=== PATIENT | male | born 1935 | race Caucasian/White ===

== ENCOUNTER → 2016-05-13 | Day surgery (SDC) | payer OTHER, BC ==
[2016-04-27 10:37] VITALS: Ht 168.9 cm; Wt 69.1 kg
[~2016-05-13] VITALS: Ht 168.9 cm; Wt 69.1 kg
[~2016-05-13] MED LIST: 500ML BSS 0.3ML EPI 1:1000PF IRRIG ONE; ACETAMINOPHEN 325 MG TAB PO PRN; AGG PO; AMVISC PLUS 0.8ML SYRINGE INT OCU ONE; ASPI81TA28 PO; ATEN-174 PO; ATROPINE SULFATE 0.1 MG/ML 5ML SYR IV PRN; AcetaZOLAMIDE 250 MG TAB PO SCH; BETAXOLOL HCL 0.25% OP SUSP PER DROP CHARGE OPL SCH; BRIMONIDINE TART 0.2% OP SOLN PER DROP CHARGE ONE; BSS FLUSH ONE; EpHEDrine SULFATE INJ 50 MG/ML AMP IV PRN; EpINEphrine INJ 1MG/ML AMP 1 MG/ML AMP ONE; FIBE1CHW PO; LACTATED RINGER'S 1000ML 500 ML IV SCH; LIDOCAINE 4% OP SOLN DROP CHARGE ONE; LIDOCAINE 4% OP SOLN DROP CHARGE OPL SCH; LIDOCAINE HCL 1% MPF 2 ML VIAL ONE; LISI5TAB PO; MIDAZOLAM HCL 1 MG/ML 2ML VIAL ONE; MISC1CAP58 PO; MIX: 4ML BSS 1ML EPI 1:1000 PF INSTIL ONE; MOXIFLOXACIN OPH SOLN PER DROP CHARGE ONE; NTRGSL/4 UT; OCUCOAT 1 ML SOLN IO ONE; POVIDONE-IODINE OP SOLN 30 ML BTL ONE; PROPARACAINE 0.5% OP SOLN PER DROP CHARGE OPL SCH; PROPARACAINE HCL 0.5% OP SOLN 15 ML BTL OPL ONE; SIMV20TA2 PO; TOBRAMYCIN/DEXAMETHASONE OPH OINT PER APPLN CHARGE ONE; TRYPAN BLUE 0.06% FOR SURGI CENTER ONLY OP ONE
--- NOTE | 2016-05-13 08:12 | History & Physical Bridge - [place] ---
H&P Re-Evaluation Bridge Note: I have examined the patient, reviewed the History & Physical and in the interval since the performance of the History & Physical I have noted the following changes of clinical significance: planning femto second laser. No changes noted
[2016-05-13] MEDS: PHENYLEPHRINE HCL 2.5% OP SOLN PER DROP CHARGE OPL SCH ×2 (08:50→08:55)
[2016-05-13] MEDS: TROPICAMIDE 1% OP SOLN PER DROP CHARGE OPL SCH ×2 (08:51→08:56)
[2016-05-13] MEDS: CYCLOPENTOLATE HCL 1% OP SOLN PER DROP CHARGE OPL SCH ×2 (08:52→08:57)
[2016-05-13] MEDS: MOXIFLOXACIN OPH SOLN PER DROP CHARGE OPL SCH ×2 (08:53→09:03)
--- NOTE | 2016-05-13 09:48 | Discharge Instructions-SurgCtr ---
Discharge Instructions Date of Service May 13, 2016. Visit Reason for Visit: Cataract Left Eye Discharge Discharge Diagnosis / Problem: lens implant left eye Discharge Goals Goal(s): Improve function Activity Recommendations Activity Limitations: resume your previous activity Lifting Limitations: no more than 10 pounds Exercise/Sports Limitations: gradually increase as tolerated May Resume Sexual Activity: when tolerated Shower/Bathe: tomorrow Driving or Machine Use: resume 1 day after discharge Anesthesia . Post Anesthesia Instructions: If you have had General Anesthesia or IV Sedation: * Do not drive today. * Resume driving when surgeon permits. * Do not make important decisions or sign legal documents today. * Call surgeon for: 1. Temperature elevations greater than 101 degrees F. 2. Uncontrollable pain. 3. Excessive bleeding. 4. Persistent nausea and vomiting. 5. Medication intolerance (nausea, vomiting or rash). * For nausea and vomiting use only clear liquids such as: tea, soda, bouillon until nausea subsides, then gradually increase diet as tolerated. * If you have any concerns or questions, call your surgeon's office. If physician is unavailable and it is an emergency, call 911 or go to the nearest emergency room. . Instructions / Follow-Up Instructions / Follow-Up ACTIVITY RECOMMENDATIONS: * Light activities. * Mild irritation and blurred vision are common for the first few days. * You may walk outside, read, watch television. * Redness around the white part of the eye is common. MEDICATIONS: Resume previous medications unless instructed otherwise by your surgeon. * Take white Diamox (Acetazolamide) tablet at 1 pm today. Start all eye drops at 1 pm today: * Eye drops (today and tomorrow): Prednisone - one drop in operative eye every 3 hours while awake Ofloxacin - one drop in operative eye every 3 hours while awake SPECIAL CARE INSTRUCTIONS: * Tape plastic shield over eye to sleep at night. Call your doctor at with any concerns or problems. FOLLOW UP VISIT: Follow-up with Dr Villalpando at [place] office as scheduled. Diet Recommendations Home Diet: no limitations Procedures Procedures Performed: cataract extraction with lens implant Pending Studies Studies pending at discharge: no Medical Emergencies . Who to Call and When: Medical Emergencies: If at any time you feel your situation is an emergency, please call 911 immediately. . Non-Emergent Contact Non-Emergency issues call your: Security Police Officer Call Non-Emergent contact if: your pain is not controlled [phone] . . "Provider Documentation" section prepared by Craig Villalpando.
[2016-05-13 09:52] VITALS: TEMP 36.6
--- NOTE | 2016-05-13 09:52 | [facility] Operative Report ---
Operative Report Date of Service May 13, 2016. Operative Report 1. PREOPERATIVE DIAGNOSIS: Senile nuclear cataract, left eye. 2. POSTOPERATIVE DIAGNOSIS: Senile nuclear cataract, left eye. 3. PROCEDURE: Phacoemulsification of left cataract with posterior chamber lens implant, type [employer], model MX60, power +22.5 diopters. ANESTHESIA: Local standby. SURGEON: Dr. Villalpando. COMPLICATIONS: None. OPERATING TIME: 10 minutes. 4. OPERATION AND FINDINGS: DESCRIPTION OF PROCEDURE: The left pupil was dilated. The patient was transported to the Femto Laser room. The Femto Laser was used to make the primary incision and the astigmatic incision and the capsulorrhexis and to soften the lens nucleus. The patient was transported to the operating room. The anesthetic was administered using a topical technique. The left eye was prepped and draped. A speculum was placed. A clear corneal incision was formed. The chamber was filled with Amvisc Plus and Endocoat. Epinephrine solution was used. A paracentesis was placed. A capsulorrhexis was performed. The nucleus was hydrodissected. The lens was removed with phacoemulsification. Time was 4.32 seconds. The aspiration unit was used to remove the cortex. The capsule was filled with Amvisc Plus. The lens implant was folded and placed into the capsule. The incision was hydrated. The Amvisc was aspirated. The wound was secure. The chamber was deep. The pupil was round. Brimonidine, TobraDex ointment and Vigamox solution were placed. The speculum was removed. The patient was returned to the Recovery Room in stable condition. I attest to the content of the Intraoperative Record and any orders documented therein. Any exceptions are noted below. The scribe's documentation has been prepared in my presence, under my direction and personally reviewed by me in its entirety. I confirm that the note above accurately reflects all work, treatment, procedures, and medical decision making performed by me. I personally scribed for Craig Villalpando M.D. ([email or web address]) on 05/13/16 at 09:52. Electronically submitted by Valentine Wilde ([facility]).
--- NOTE | 2016-05-13 10:03 | Anesthesia Progress Nt - [facility] ---
Anesthesia Post Op Note Date & Time May 13, 2016 at 10:03 Vital Signs Pain Intensity: 0 Vital Signs Past 12 Hours Date Time Temp Pulse Resp B/P Pulse Ox O2 Delivery O2 Flow Rate FiO2 05/13/16 09:52 36.6 55 16 193/105 98 Room Air 05/13/16 09:30 56 180/88 98 05/13/16 09:25 58 190/84 98 05/13/16 09:20 56 176/84 100 05/13/16 08:39 36.7 57 20 179/84 100 Room Air Notes Mental Status: alert / awake / arousable, participated in evaluation Pt Amnestic to Procedure: Yes Nausea / Vomiting: adequately controlled Pain: adequately controlled Airway Patency, RR, SpO2: stable & adequate BP & HR: stable & adequate Hydration State: stable & adequate Anesthetic Complications: no major complications apparent
[2016-05-13 10:25] VITALS: BP 162/86; PULSE 55; O2SAT 99
== END | disposition home or self-care (01) ==
LOC: X.SURG 08:19
PROVIDERS: ATTEND Specialist
DX: H25.12 Age-related nuclear cataract, left eye (principal); Z79.899 Other long term (current) drug therapy

== ENCOUNTER 2021-06-01 21:57 | Inpatient (IN) ==
--- NOTE | 2021-06-01 22:27 | Emergency Department Note ---
History of Present Illness General Chief complaint: Fall Stated complaint: Fall, Weakness Time Seen by Provider: 06/01/21 22:12 Source: patient, family, RN notes reviewed and old records reviewed Mode of arrival: ambulatory Limitations: no limitations History of Present Illness This patient comes in after falling. He said he lost balance as he typically does denies any injuries. He was recently diagnosed with COVID after having a home positive test. Is been sick for about 4 days with a deep [place] cough. He had a fever range from 99-1 101. He does not feel short of breath however he was hypoxemic. He has abrasion of his head and says it is more of a chronic thing where he hit his head frequently when going up to the attic. He denies any significant acute injury. He is on a blood thinner. Home Medications Medication Instructions Recorded Confirmed Type aspirin 25 mg-dipyridamole 200 mg 1 cap PO BID 06/01/21 06/01/21 History capsule,ext.release 12 hr multiphase aspirin 81 mg tablet,delayed 81 mg PO DAILY 06/01/21 06/01/21 History release atenolol 50 mg tablet 50 mg PO DAILY 06/01/21 06/01/21 History cyanocobalamin (vitamin B-12) 1,000 mcg PO DAILY 06/01/21 06/01/21 History 1,000 mcg tablet (Vitamin B-12) lisinopril 40 mg tablet 40 mg PO HS 06/01/21 06/01/21 History lutein 20 mg tablet 0 mg PO DAILY 06/01/21 06/01/21 History nitroglycerin 0.4 mg sublingual 0.4 mg SUBLINGUAL DIRECTED PRN 06/01/21 06/01/21 History tablet (Nitrostat) simvastatin 20 mg tablet 20 mg PO HS 06/01/21 06/01/21 History Allergies Allergy/AdvReac Type Severity Reaction Status Date / Time No Known Allergies Allergy Unknown Verified 06/01/21 22:49 Past Med/Surg History Social History Smoking Status: Never smoker Preferred Language: Sinhala Feels Safe at Home: Yes Review of Systems A total of 10 systems reviewed and were otherwise negative Physical Exam Vital Signs Vital Signs - 24 hr 06/01/21 22:00 06/01/21 22:03 06/02/21 00:03 Temperature 37.1 C 37.1 C Temperature Source Oral Oral Pulse Rate 70 87 Pulse Rate [Apical] 96 H 79 Pulse Rhythm Regular Regular Pulse Rhythm [Apical] Regular Regular Pulse Strength Normal Pulse Strength [Apical] Normal Normal Respiratory Rate 18 22 18 Respiratory Effort / Characteristics Non-Labored Spontaneous Non-Labored Spontaneous Short of Breath SOB on Exertion Non-Labored Spontaneous Respiratory Depth Normal Normal Normal Respiratory Pattern Regular Tachypnea Regular Blood Pressure 159/83 H Blood Pressure [Right Arm] 159/83 H 159/83 H Blood Pressure Mean 108 Blood Pressure Mean [Right Arm] 108 108 Blood Pressure Position Lying Blood Pressure Position [Right Arm] Lying Lying Pulse Oximetry 96 93 98 Oxygen Delivery Method Nasal Cannula Non-rebreather Nasal Cannula Oxygen Flow Rate 6 15 6 Sepsis Recent Fever Within 48 Hours Yes Sepsis New/Unexplained Change in Mental Status No Sepsis Action Taken by Nursing No Action Required 06/02/21 02:00 Temperature Temperature Source Pulse Rate Pulse Rate [Apical] 79 Pulse Rhythm Pulse Rhythm [Apical] Regular Pulse Strength Pulse Strength [Apical] Normal Respiratory Rate 18 Respiratory Effort / Characteristics Non-Labored Spontaneous Respiratory Depth Normal Respiratory Pattern Regular Blood Pressure Blood Pressure [Right Arm] 159/83 H Blood Pressure Mean Blood Pressure Mean [Right Arm] 108 Blood Pressure Position Blood Pressure Position [Right Arm] Lying Pulse Oximetry 98 Oxygen Delivery Method Nasal Cannula Oxygen Flow Rate 6 Sepsis Recent Fever Within 48 Hours Sepsis New/Unexplained Change in Mental Status Sepsis Action Taken by Nursing General: Well developed well nourished male who is wearing facemask but in no acute distress, breathing comfortably on room air. Normal speech. He has a deep hacking cough. HEENT: Normal cephalic atraumatic exception of some abrasions to the head which she says are not new today pupils are equal round and reactive to light. Extraocular movements are intact. Oropharynx is pink with moist mucous membranes. No swelling of the mouth lips or tongue. Neck: Supple with a midline trachea. No meningeal signs or stiffness, no JVD or bruits. No Stridor. Chest: Clear to auscultation bilaterally. No wheezes or rhonchi. No increased work of breathing. No crepitus or subcutaneous air. Heart: Regular rate and rhythm without murmurs or gallops. Abdomen: Soft nontender, nondistended without rebound guarding or rigidity. Extremities: No cyanosis clubbing or edema. No calf tenderness or assymetry Spine/Back. Non tender to palpation. No CVA tenderness Skin: Good turgor without rashes. Neurologic exam: Cranial nerves two through 12 are intact. Motor and sensation are intact and symmetrical throughout. Course Administered Medications Discontinued Medications Albuterol (Albut/Ipratrop 3mg/0.5mg Neb 3 Ml Vial) 3 ml NEB NOW STA; Protocol Stop: 06/02/21 01:18 Last Admin: 06/02/21 02:10 Dose: 3 ml Documented by: [id number] Dexamethasone Sodium Phosphate (DexamethasonePf 10 Mg/Ml Vial) 6 mg IV NOW ONE Stop: 06/02/21 00:25 Last Admin: 06/02/21 00:38 Dose: 6 mg Documented by: [id number] Sodium Chloride (Nss 1000ml) 500 mls @ 999 mls/hr IV .Q31M ONE Stop: 06/02/21 00:54 Last Infusion: 06/02/21 01:14 Dose: 0 mls/hr Documented by: [id number] Admin: 06/02/21 00:40 Dose: 999 mls/hr Documented by: [id number] Ioversol (Optiray 320 125ml) 125 ml IV ONCE ONE Stop: 06/02/21 01:51 Last Admin: 06/02/21 01:50 Dose: 116 ml Documented by: [id number] Potassium Chloride (Potassium Chloride Crtab 20 Meq Tabcr) 20 meq PO NOW STA Stop: 06/02/21 01:18 Last Admin: 06/02/21 02:11 Dose: 20 meq Documented by: [id number] Medical Decision Making Differential Diagnosis COVID, pneumonia, sepsis, CHF, traumatic injuries, cardiac disease Medical Records Attestation: I reviewed the patient's medical records. Home Medications Current Medication List: was personally reviewed by me Laboratory Data Attestation: I reviewed the patient's lab results. Result diagrams: 06/01/21 22:50 06/01/21 22:50 Lab Results 06/01/21 06/01/21 06/01/21 Range/Units 22:50 22:50 22:50 WBC 7.35 (4.8-10.8) K/uL RBC 3.97 L (4.7-6.1) M/uL Hgb 13.7 L (14.0-18.0) g/dL Hct 39.2 L (42-52) % MCV 98.7 (80-100) fL MCH 34.5 H (25-34) pg MCHC 34.9 (32-36) g/dL RDW Std Deviation 48.1 H (36.4-46.3) fL RDW Coeff of James 13.3 (11.5-14.5) % Plt Count 138 (130-400) K/uL MPV 12.4 H (7.4-10.4) fL Immature Gran % (Auto) 0.1 % Neut % (Auto) 82.9 % Lymph % (Auto) 7.6 % [place] % (Auto) 9.3 % Eos % (Auto) 0.0 % Baso % (Auto) 0.1 % Neut # (Auto) 6.09 (1.4-6.5) K/uL Lymph # (Auto) 0.56 L (1.2-3.4) K/uL [place] # (Auto) 0.68 H (0.11-0.59) K/uL Eos # (Auto) 0.00 (0-0.5) K/uL Baso # (Auto) 0.01 (0-0.2) K/uL Immature Gran # (Auto) 0.01 (0.00-0.02) K/uL PT 10.6 (9.0-12.0) Seconds INR 1.0 (0.9-1.1) APTT 29.0 (21.0-31.0) Seconds PTT Ratio 1.1 D-Dimer 2780 H* (0-500) ug/L FEU ABG pH (7.35-7.45) ABG pCO2 (35-46) mmHg ABG pO2 (80-95) mmHg ABG HCO3 (19-24) mmol/L ABG O2 Saturation (90-95) % ABG Base Excess (-9-1.8) mEq/L Hollis Test (Pos) Barometric Pressure mm/Hg Oxygen Given Sodium (136-145) mmol/L Potassium (3.5-5.1) mmol/L Chloride (98-107) mmol/L Carbon Dioxide (21-32) mmol/L Anion Gap (3-11) BUN (6-23) mg/dl Creatinine (0.6-1.4) mg/dl Est Cr Clr Drug Dosing ml/min Est GFR ( Amer) ml/min Est GFR (Non-Af Amer) ml/min BUN/Creatinine Ratio (10-20) Glucose (70-99(Fasting)) mg/dl Lactate (0.4-2.0) mmol/L Calcium (8.5-10.1) mg/dl Magnesium (1.7-2.4) mg/dl Total Bilirubin (0.2-1.0) mg/dl AST (13-39) U/L ALT (7-52) U/L Alkaline Phosphatase (34-104) U/L Troponin I High Sens 67.1 H* (0-20) pg/ml Total Protein (6.0-8.3) gm/dl Albumin (3.4-5.0) gm/dl Globulin (2.5-4.0) gm/dl Albumin/Globulin Ratio (0.9-2) Procalcitonin (0-0.5) ng/ml SARS-CoV-2 (PCR) (Negative) Influenza Type A (PCR) (Neg) Influenza Type B (PCR) (Neg) RSV (RT-PCR) (Neg) 06/01/21 06/01/21 06/01/21 Range/Units 22:50 22:50 22:50 WBC (4.8-10.8) K/uL RBC (4.7-6.1) M/uL Hgb (14.0-18.0) g/dL Hct (42-52) % MCV (80-100) fL MCH (25-34) pg MCHC (32-36) g/dL RDW Std Deviation (36.4-46.3) fL RDW Coeff of James (11.5-14.5) % Plt Count (130-400) K/uL MPV (7.4-10.4) fL Immature Gran % (Auto) % Neut % (Auto) % Lymph % (Auto) % [place] % (Auto) % Eos % (Auto) % Baso % (Auto) % Neut # (Auto) (1.4-6.5) K/uL Lymph # (Auto) (1.2-3.4) K/uL [place] # (Auto) (0.11-0.59) K/uL Eos # (Auto) (0-0.5) K/uL Baso # (Auto) (0-0.2) K/uL Immature Gran # (Auto) (0.00-0.02) K/uL PT (9.0-12.0) Seconds INR (0.9-1.1) APTT (21.0-31.0) Seconds PTT Ratio D-Dimer (0-500) ug/L FEU ABG pH (7.35-7.45) ABG pCO2 (35-46) mmHg ABG pO2 (80-95) mmHg ABG HCO3 (19-24) mmol/L ABG O2 Saturation (90-95) % ABG Base Excess (-9-1.8) mEq/L Hollis Test (Pos) Barometric Pressure mm/Hg Oxygen Given Sodium 137 (136-145) mmol/L Potassium 3.4 L (3.5-5.1) mmol/L Chloride 104 (98-107) mmol/L Carbon Dioxide 25 (21-32) mmol/L Anion Gap 8 (3-11) BUN 21 (6-23) mg/dl Creatinine 0.84 (0.6-1.4) mg/dl Est Cr Clr Drug Dosing 59.0 ml/min Est GFR ( Amer) 91.9 ml/min Est GFR (Non-Af Amer) 79.3 ml/min BUN/Creatinine Ratio 25.0 H (10-20) Glucose 129 H (70-99(Fasting)) mg/dl Lactate 0.9 (0.4-2.0) mmol/L Calcium 9.1 (8.5-10.1) mg/dl Magnesium 2.1 (1.7-2.4) mg/dl Total Bilirubin 0.6 (0.2-1.0) mg/dl AST 72 H (13-39) U/L ALT 33 (7-52) U/L Alkaline Phosphatase 68 (34-104) U/L Troponin I High Sens (0-20) pg/ml Total Protein 6.6 (6.0-8.3) gm/dl Albumin 3.8 (3.4-5.0) gm/dl Globulin 2.8 (2.5-4.0) gm/dl Albumin/Globulin Ratio 1.4 (0.9-2) Procalcitonin 0.08 (0-0.5) ng/ml SARS-CoV-2 (PCR) (Negative) Influenza Type A (PCR) (Neg) Influenza Type B (PCR) (Neg) RSV (RT-PCR) (Neg) 06/01/21 06/02/21 06/02/21 Range/Units 22:50 00:58 01:48 WBC (4.8-10.8) K/uL RBC (4.7-6.1) M/uL Hgb (14.0-18.0) g/dL Hct (42-52) % MCV (80-100) fL MCH (25-34) pg MCHC (32-36) g/dL RDW Std Deviation (36.4-46.3) fL RDW Coeff of James (11.5-14.5) % Plt Count (130-400) K/uL MPV (7.4-10.4) fL Immature Gran % (Auto) % Neut % (Auto) % Lymph % (Auto) % [place] % (Auto) % Eos % (Auto) % Baso % (Auto) % Neut # (Auto) (1.4-6.5) K/uL Lymph # (Auto) (1.2-3.4) K/uL [place] # (Auto) (0.11-0.59) K/uL Eos # (Auto) (0-0.5) K/uL Baso # (Auto) (0-0.2) K/uL Immature Gran # (Auto) (0.00-0.02) K/uL PT (9.0-12.0) Seconds INR (0.9-1.1) APTT (21.0-31.0) Seconds PTT Ratio D-Dimer (0-500) ug/L FEU ABG pH 7.38 (7.35-7.45) ABG pCO2 34 L (35-46) mmHg ABG pO2 68 L (80-95) mmHg ABG HCO3 20 (19-24) mmol/L ABG O2 Saturation 94.0 (90-95) % ABG Base Excess -4.5 (-9-1.8) mEq/L Hollis Test Pos (Pos) Barometric Pressure 731.7 mm/Hg Oxygen Given ROOM AIR Sodium (136-145) mmol/L Potassium (3.5-5.1) mmol/L Chloride (98-107) mmol/L Carbon Dioxide (21-32) mmol/L Anion Gap (3-11) BUN (6-23) mg/dl Creatinine (0.6-1.4) mg/dl Est Cr Clr Drug Dosing ml/min Est GFR ( Amer) ml/min Est GFR (Non-Af Amer) ml/min BUN/Creatinine Ratio (10-20) Glucose (70-99(Fasting)) mg/dl Lactate (0.4-2.0) mmol/L Calcium (8.5-10.1) mg/dl Magnesium (1.7-2.4) mg/dl Total Bilirubin (0.2-1.0) mg/dl AST (13-39) U/L ALT (7-52) U/L Alkaline Phosphatase (34-104) U/L Troponin I High Sens 84.7 H* D (0-20) pg/ml Total Protein (6.0-8.3) gm/dl Albumin (3.4-5.0) gm/dl Globulin (2.5-4.0) gm/dl Albumin/Globulin Ratio (0.9-2) Procalcitonin (0-0.5) ng/ml SARS-CoV-2 (PCR) POSITIVE A* (Negative) Influenza Type A (PCR) Negative (Neg) Influenza Type B (PCR) Negative (Neg) RSV (RT-PCR) Negative (Neg) Imaging Data Attestation: I personally reviewed and interpreted this imaging study as follows: My Impression: Chest x-rayno acute infiltrate, failure, pneumothorax seen Radiologist's Impression: CT HEAD: Mild cerebral atrophy and patchy periventricular and deep white matter low densities throughout the cerebrum consistent with chronic small vessel disease and/or senescent changes. 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 No acute large vessel infarct or intracranial hemorrhage is seen. The paranasal sinuses and mastoid air cells are normal. No skull fracture or significant scalp is seen. CTA CHEST: The pulmonary arterial tree is well-opacified with contrast. No pulmonary emboli are identified. The thoracic aorta is mildly calcified but nondilated. There is no aneurysm or dissection. Borderline cardiomegaly with severe coronary calcification. No pericardial effusion is seen. Streaky densities in the lower lobes bilaterally and right middle lobe associated with bronchial wall thickening and mild bronchial plugging suggesting bronchopneumonia. No pneumothorax or pleural effusion is seen. Mild to moderate osteophytosis throughout the thoracic spine. No acute fracture or bone lesion is seen. Limited images of the abdomen showed partial visualization of a 6 mm layer of tiny calculi in the gallbladder. No obvious surrounding inflammation is seen. CT C SPINE: There is moderate narrowing and osteophytosis of the atlantodental joint. The odontoid process is intact. The prevertebral soft tissues are within normal limits. Mild to moderate multilevel degenerative disc space narrowing and osteophytosis throughout the cervical spine. There is also mild facet arthrosis. No acute fracture or subluxation is seen. Axial soft tissue images demonstrate no evidence of significant spinal stenosis. Mild calcification of the carotid bifurcations bilaterally. CT ABDOMEN & PELVIS Without Contrast: Mild scattered patchy infiltrates in both lung bases consistent with pneumonia. I will loops are nondilated. There are scattered gas fluid levels in nondilated distal small bowel and right colon suggesting mild ileus or gastroenteritis. No focal bowel wall inflammation, pneumoperitoneum, or free fluid is seen. The liver, gallbladder, pancreas, spleen, adrenal glands, and kidneys are within normal limits. The urinary bladder is partially distended and within normal limits. The prostate gland is enlarged measuring 7 cm. Mild to moderate degenerative changes are seen throughout the spine. No acute fracture or subluxation is seen. ECG Data Attestation: I personally reviewed and interpreted this ECG as follows: Indication: + weakness Rate (beats per minute): 77 Rhythm: + sinus with SA ECG Intervals/blocks: + Normal QRS, + Normal QT and + Normal DE ECG [place]: + Normal ECG ST segments: + Normal ST segments ECG Findings: no PACs or no PVCs Comparison ECG Date: from (02/04/06) Change: no significant change MDM Narrative This patient comes in as described above. He was placed in room A3, the nurse asked me to come see him as he was hypoxemic. He appears comfortable on the supplemental oxygen. He apparently had a positive home COVID test every swab him here I did a full sepsis type work-up chest x-ray was obtained he was reassessed frequently. He does apparently have some dementia but does seem to answer questions appropriately but I am not sure how accurately. I did a full sepsis type work-up on him. He does not actually appear to be any significant distress and we actually weaned his oxygen down from 15 L to 6. He does have abrasions of the head which he said was from bumping in the attic however his said he fell and hit his head today and he has been very weak lately. He did have a home positive COVID which was confirmed here and he is indeed positive for COVID is unclear how many days but it sounds like he has had symptoms for 2 or 3. I did give him Decadron 6 mg IV given his hypoxemia. His D-dimer did come back elevated. I did order a CTA of the chest as well as a CT of the head and neck and abdomen to evaluate him for PE and also trauma since he did fall. His troponin is mildly elevated as well as EKG shows no ischemic changes. While he was here he did fall while trying to get out of bed he denies any injury he may have hit his head this was prior to me scanning him. He has no other complaints. I went and evaluated him after this. CAT scan of his head was negative. CAT scan of the neck was also negative for acute findings. CAT scan of the chest and abdomen did not show any acute findings with exception of likely COVID findings. No PE. His troponin is trending upward which is a concern for cardiac event probably related to the COVID although his EKG does not show ischemic changes and he has no chest pain. Dr. Lozada was consulted and saw the patient in ER for further treatment and evaluation. Continuous cardiac monitoring: An order was placed in EMR for continuous cardiac monitoring. Upon my evaluation, the patient was found to be an normal sinus rhythm with a rate of 75 Impression & Plan COVID, Weakness, Fall, Head injury, Elevated troponin, Hypoxemia Discharge Plan Visit Data Chief Complaint: Fall Stated Complaint: Fall, Weakness ED Provider: Bernardo Aguilar Discharge Problem: COVID, Weakness, Fall, Head injury, Elevated troponin, Hypoxemia Forms Stand Alone Forms: My [facility] Prescriptions Prescriptions: No Action aspirin-dipyridamole 25-200 mg capsule, ER multiphase 12 hr 1 cap PO BID RF: 0 cyanocobalamin (vitamin B-12) [Vitamin B-12] 1,000 mcg Tablet 1,000 mcg PO DAILY RF: 0 aspirin 81 mg Tablet,Delayed Release (Dr/Ec) 81 mg PO DAILY RF: 0 simvastatin 20 mg tablet 20 mg PO HS RF: 0 nitroglycerin [Nitrostat] 0.4 mg Tablet, Sublingual 0.4 mg sublingual DIRECTED PRN (Reason: Chest Pain) RF: 0 lisinopril 40 mg tablet 40 mg PO HS RF: 0 atenolol 50 mg tablet 50 mg PO DAILY RF: 0 lutein 20 mg Tablet 0 mg PO DAILY RF: 0 Referrals Referrals: Roni Johnson MD [Primary Care Provider] -
[2021-06-01 23:31] LABS: Hematocrit (blood only) 39.2 % (42-52); Hemoglobin 13.7 g/dL (14.0-18.0); Mean Corpuscular Hemoglobin 34.5 pg (25-34); Mean Corpuscular Hgb Conc 34.9 g/dL (32-36); Mean Corpuscular Volume 98.7 fL (80-100); Mean Platelet Volume 12.4 fL (7.4-10.4); Platelet Count 138 K/uL (130-400); RDW Coefficient of Variation 13.3 % (11.5-14.5); RDW Standard Deviation 48.1 fL (36.4-46.3); Red Blood Count 3.97 M/uL (4.7-6.1); White Blood Count 7.35 K/uL (4.8-10.8)
[2021-06-01 23:53] LABS: Basophils # (auto) 0.01 K/uL (0-0.2); Basophils % (auto) 0.1 %; Immature Granulocytes # (auto) 0.01 K/uL (0.00-0.02); Immature Granulocytes % (auto) 0.1 %; Lymphocytes # (auto) 0.56 K/uL (1.2-3.4); Lymphocytes % (auto) 7.6 %; Monocytes # (auto) 0.68 K/uL (0.11-0.59); Monocytes % (auto) 9.3 %; Neutrophils # (auto) 6.09 K/uL (1.4-6.5); Neutrophils % (auto) 82.9 %
[2021-06-02 00:04] LABS: Partial Thromboplastin Ratio 1.1; Prothrombin Time 10.6 Seconds (9.0-12.0)
[2021-06-02 00:05] LABS: D Dimer 2780 ug/L FEU (0-500)
[2021-06-02 00:06] LABS: Influenza A virus by PCR Negative (Neg); Influenza B virus by PCR Negative (Neg); RSV by PCR Negative (Neg)
[2021-06-02 00:13] LABS: Albumin Globulin Ratio 1.4 (0.9-2); Albumin Level 3.8 gm/dl (3.4-5.0); Bilirubin,Total 0.6 mg/dl (0.2-1.0); Calcium 9.1 mg/dl (8.5-10.1); Est GFR (African American) 91.9 ml/min; Est GFR (Non-African American) 79.3 ml/min; Globulin 2.8 gm/dl (2.5-4.0); Magnesium 2.1 mg/dl (1.7-2.4); Potassium 3.4 mmol/L (3.5-5.1); Total Protein 6.6 gm/dl (6.0-8.3)
[2021-06-02 00:20] LABS: SARS CoV2 RNA(COVID-19) InHosp POSITIVE (Negative)
[2021-06-02] MEDS ORDERED: dexAMETHasone**PF** 10 MG/ML VIAL IV ONE (00:24)
[2021-06-02] MEDS ORDERED: SODIUM CHLORIDE 0.9% 1000ML 500 ML IV ONE (00:24)
[2021-06-02] MEDS ORDERED: POTASSIUM CHLORIDE CRTAB 20 MEQ TABCR PO STA ×2 (01:17→09:17)
[2021-06-02] MEDS ORDERED: ALBUT/IPRATROP 3MG/0.5MG NEB 3 ML VIAL NEB STA (01:17)
[2021-06-02] MEDS ORDERED: OPTIRAY 320 125ml IV ONE (01:50)
[2021-06-02 02:03] LABS: Base Excess ABG -4.5 mEq/L (-9-1.8); HCO3 ABG 20 mmol/L (19-24); PCO2 ABG 34 mmHg (35-46); PO2 ABG 68 mmHg (80-95); pH ABG 7.38 (7.35-7.45)
[2021-06-02 02:04] LABS: Allen Test Pos (Pos)
[2021-06-02] MEDS ORDERED: cefTRIAXone SODIUM 2,000 MG/70 ML BAG IV STA (02:54)
--- NOTE | 2021-06-02 02:54 | History & Physical Report ---
Date of Service June 02, 2021 Assessment & Plan (1) Acute hypoxemic respiratory failure: Plan: Secondary to severe COVID-19 pneumonia With superimposed bacterial infection No overt sepsis for now Left facial weakness Unknown duration Rule out recurrent CVA Patient on Aggrenox once daily instead of twice daily due to hemorrhoidal bleed as per outpatient Neurology notes from 2016. 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 (Patient and were counseled regarding potential adverse effects from Remdesivir therapy and provided with patient education sheet.) Ceftriaxone and doxycycline for superimposed bacterial infection. Pulmonary consult if without improvement. Neurochecks MRI/MRA brain Re: Left facial weakness May need neurology consultation and additional stroke work-up pending MRI results Permissive hypertension until acute stroke ruled out Resume antiplatelet Rx for secondary CAD/stroke prevention if hemoglobin stable and patient without further bouts of epistaxis. Follow CPK response to IVF, hold statin for now until rhabdomyolysis resolved Follow troponin, TTE if with progression Replace potassium Check hemoglobin A1c DVT prophylaxis SCDs for now Re: Epistaxis; Lovenox subcutaneous daily if hemoglobin stable and patient without further bouts of epistaxis Full code Patient requesting updates from providers. Ms. Hilaria Michelle, contact #[phone]. Text document was generated using [employer] voice recognition software. It may contain grammatical or spelling errors. Kindly contact undersigned for clarification of any documentation item in question. History of Present Illness Chief Complaint: Fall Primary Care Provider: Roni Johnson MD History obtained from patient, family, and records. Patient is a fair historian. 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 Patient with junky cough symptoms productive of yellow sputum the last few days. Appetite not too good as per . Patient denies chest pain, SOB. No known sick COVID-19 contacts as per . Patient completed COVID-19 vaccination along with a booster shot. Home testing for COVID-19 yesterday was positive. Patient intended to call PCPs office to inquire about antiviral medication during office hours today. Patient was found on the ground face down just outside her front door by hours ago. Patient claims he lost his balance while picking up sticks. Patient cannot recall how long he was on the ground. Patient denies chest pain, SOB, headache, syncope symptoms. Patient noted to be very weak by . felt she was dragging weight back into the house. Epistaxis subsequently noted when patient blew his nose as per . EMS called by . Patient noted to be hypoxemic upon arrival of EMS. Patient given Decadron upon arrival at the ER. 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 Allergies Allergy/AdvReac Type Severity Reaction Status Date / Time No Known Allergies Allergy Unknown Verified 06/01/21 22:49 Home Medications Medication Instructions Recorded Confirmed Type aspirin 25 mg-dipyridamole 200 mg 1 cap PO BID 06/01/21 06/01/21 History capsule,ext.release 12 hr multiphase aspirin 81 mg tablet,delayed 81 mg PO DAILY 06/01/21 06/01/21 History release atenolol 50 mg tablet 50 mg PO DAILY 06/01/21 06/01/21 History cyanocobalamin (vitamin B-12) 1,000 mcg PO DAILY 06/01/21 06/01/21 History 1,000 mcg tablet (Vitamin B-12) lisinopril 40 mg tablet 40 mg PO HS 06/01/21 06/01/21 History lutein 20 mg tablet 0 mg PO DAILY 06/01/21 06/01/21 History nitroglycerin 0.4 mg sublingual 0.4 mg SUBLINGUAL DIRECTED PRN 06/01/21 06/01/21 History tablet (Nitrostat) simvastatin 20 mg tablet 20 mg PO HS 06/01/21 06/01/21 History Past Med/Surg History Social History Smoking Status: Never smoker Second Hand Exposure: No; Do You Dip or Chew Tobacco: No; Tobacco Cessation Education Requested by Patient: No Hx Alcohol Use: Yes Alcohol type: beer Hx Substance Use: No Preferred 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: 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: No Beliefs That Will Affect Care: None Current Living Situation: Spouse Current Living Situation Comment: house Other Information That Helps Us Care for You: No Feels Safe at Home: Yes Safety Concerns: Feels Safe At This Time Assistive Devices: Glasses Review of Systems Review of Systems: Could not be reliably obtained secondary to episode of disorientation Physical Exam Physical Exam: GENERAL: Comfortable, pleasant, episodic disorientation, obese, no respiratory distress SKIN: Normal color, warm HEENT: Multiple facial abrasions, pink palpebral conjunctivae, no ptosis, dry buccal mucosa, nasal cannula in place NECK : Supple, short neck, no tenderness CHEST : Decreased breath sounds, no tenderness HEART : RRR, no obvious murmurs ABDOMEN: Some distention, nontender EXTREMITIES : No LE swelling, no LE tenderness, no other conspicuous deformities noted NEUROLOGIC : Coherent, episodic disorientation, left facial weakness (unknown duration as per ), gait and stance not assessed Results & Data Results & Data ([facility]) Vital Signs (Past 12 Hours) Vital Signs Temp Pulse Pulse Resp BP BP Pulse Ox 06/02/21 02:00 79 18 159/83 H 98 06/02/21 00:03 79 18 159/83 H 98 06/01/21 22:03 37.1 C 87 22 159/83 H 93 06/01/21 22:00 37.1 C 70 96 H 18 159/83 H 96 Laboratory Results Laboratory Results WBC 7.35 K/uL (4.8-10.8) 06/01/21 22:50 RBC 3.97 M/uL (4.7-6.1) L 06/01/21 22:50 Hgb 13.7 g/dL (14.0-18.0) L 06/01/21 22:50 Hct 39.2 % (42-52) L 06/01/21 22:50 MCV 98.7 fL (80-100) 06/01/21 22:50 MCH 34.5 pg (25-34) H 06/01/21 22:50 MCHC 34.9 g/dL (32-36) 06/01/21 22:50 RDW Std Deviation 48.1 fL (36.4-46.3) H 06/01/21 22:50 RDW Coeff of James 13.3 % (11.5-14.5) 06/01/21 22:50 Plt Count 138 K/uL (130-400) 06/01/21 22:50 MPV 12.4 fL (7.4-10.4) H 06/01/21 22:50 Immature Gran % (Auto) 0.1 % 06/01/21 22:50 Neut % (Auto) 82.9 % 06/01/21 22:50 Lymph % (Auto) 7.6 % 06/01/21 22:50 Meriwether % (Auto) 9.3 % 06/01/21 22:50 Eos % (Auto) 0.0 % 06/01/21 22:50 Baso % (Auto) 0.1 % 06/01/21 22:50 Neut # (Auto) 6.09 K/uL (1.4-6.5) 06/01/21 22:50 Lymph # (Auto) 0.56 K/uL (1.2-3.4) L 06/01/21 22:50 Meriwether # (Auto) 0.68 K/uL (0.11-0.59) H 06/01/21 22:50 Eos # (Auto) 0.00 K/uL (0-0.5) 06/01/21 22:50 Baso # (Auto) 0.01 K/uL (0-0.2) 06/01/21 22:50 Immature Gran # (Auto) 0.01 K/uL (0.00-0.02) 06/01/21 22:50 PT 10.6 Seconds (9.0-12.0) 06/01/21 22:50 INR 1.0 (0.9-1.1) 06/01/21 22:50 APTT 29.0 Seconds (21.0-31.0) 06/01/21 22:50 PTT Ratio 1.1 06/01/21 22:50 D-Dimer 2780 ug/L FEU (0-500) H* 06/01/21 22:50 ABG pH 7.38 (7.35-7.45) 06/02/21 01:48 ABG pCO2 34 mmHg (35-46) L 06/02/21 01:48 ABG pO2 68 mmHg (80-95) L 06/02/21 01:48 ABG HCO3 20 mmol/L (19-24) 06/02/21 01:48 ABG O2 Saturation 94.0 % (90-95) 06/02/21 01:48 ABG Base Excess -4.5 mEq/L (-9-1.8) 06/02/21 01:48 Hollis Test Pos (Pos) 06/02/21 01:48 Barometric Pressure 731.7 mm/Hg 06/02/21 01:48 Oxygen Given ROOM AIR 06/02/21 01:48 Sodium 137 mmol/L (136-145) 06/01/21 22:50 Potassium 3.4 mmol/L (3.5-5.1) L 06/01/21 22:50 Chloride 104 mmol/L (98-107) 06/01/21 22:50 Carbon Dioxide 25 mmol/L (21-32) 06/01/21 22:50 Anion Gap 8 (3-11) 06/01/21 22:50 BUN 21 mg/dl (6-23) 06/01/21 22:50 Creatinine 0.84 mg/dl (0.6-1.4) 06/01/21 22:50 Est Cr Clr Drug Dosing 59.0 ml/min 06/01/21 22:50 Est GFR ( Amer) 91.9 ml/min 06/01/21 22:50 Est GFR (Non-Af Amer) 79.3 ml/min 06/01/21 22:50 BUN/Creatinine Ratio 25.0 (10-20) H 06/01/21 22:50 Glucose 129 mg/dl (70-99(Fasting)) H 06/01/21 22:50 Lactate 0.9 mmol/L (0.4-2.0) 06/01/21 22:50 Calcium 9.1 mg/dl (8.5-10.1) 06/01/21 22:50 Magnesium 2.1 mg/dl (1.7-2.4) 06/01/21 22:50 Total Bilirubin 0.6 mg/dl (0.2-1.0) 06/01/21 22:50 AST 72 U/L (13-39) H 06/01/21 22:50 ALT 33 U/L (7-52) 06/01/21 22:50 Alkaline Phosphatase 68 U/L (34-104) 06/01/21 22:50 Troponin I High Sens 84.7 pg/ml (0-20) H* D 06/02/21 00:58 Total Protein 6.6 gm/dl (6.0-8.3) 06/01/21 22:50 Albumin 3.8 gm/dl (3.4-5.0) 06/01/21 22:50 Globulin 2.8 gm/dl (2.5-4.0) 06/01/21 22:50 Albumin/Globulin Ratio 1.4 (0.9-2) 06/01/21 22:50 Procalcitonin 0.08 ng/ml (0-0.5) 06/01/21 22:50 SARS-CoV-2 (PCR) POSITIVE (Negative) A* 06/01/21 22:50 Influenza Type A (PCR) Negative (Neg) 06/01/21 22:50 Influenza Type B (PCR) Negative (Neg) 06/01/21 22:50 RSV (RT-PCR) Negative (Neg) 06/01/21 22:[address] head initial read: Mild cerebral atrophyand patchyperiventricular and deep white matter lowdensities throughout the cerebrumconsistent with chronic small vessel disease and/or senescent changes. 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 No acute large vessel infarct or intracranial hemorrhage is seen. The paranasal sinuses and mastoid air cells are normal. No skull fracture or significant scalp is seen CT cervical spine initial read: There is moderate narrowing and osteophytosis of the atlantodental joint. The odontoid process is intact. The prevertebral soft tissues are within normal limits. Mild to moderate multilevel degenerative disc space narrowing and osteophytosis throughout the cervical spine. There is also mild facet arthrosis. No acute fracture or subluxation is seen. Axial soft tissue images demonstrate no evidence of significant spinal stenosis. Mild calcification of the carotid bifurcations bilaterally. CT chest initial read: The pulmonaryarterial tree iswell-opacified with contrast. No pulmonaryemboli are identified. The thoracic aorta is mildlycalcified but nondilated. There is no aneurysmor dissection. Borderline cardiomegalywith severe coronarycalcification. No pericardial effusion is seen. Streakydensities in the lower lobes bilaterallyand right middle lobe associated with bronchial wall thickening and mild bronchial plugging suggesting bronchopneumonia. No pneumothorax or pleural effusion is seen. Mild to moderate osteophytosis throughout the thoracic spine. No acute fracture or bone lesion is seen. Limited images of the abdomen showed partial visualization of a 6 mmlayer of tinycalculi in the gallbladder. No obvious surrounding inflammation is seen. CT abdomen pelvis initial read: Mild scattered patchyinfiltrates in both lung bases consistent with pneumonia. I will loops are nondilated. There are scattered gas fluid levels in nondilated distal small bowel and right colon suggesting mild ileus or gastroenteritis. No focal bowel wall inflammation, pneumoperitoneum, or free fluid is seen. The liver, gallbladder, pancreas, spleen, adrenal glands, and kidneys are within normal limits. The urinarybladder is partiallydistended and within normal limits. The prostate gland is enlarged measuring 7 cm. Mild to moderate degenerative changes are seen throughout the spine. No acute fracture or subluxation is seen EKG as per my interpretation: Rate 75, NSR, LAD, LAFB, no ischemia
[2021-06-02] MEDS ORDERED: DOXYCYCLINE HYCLATE 100 MG in DEXTROSE 5% 100 ML IV STA (03:08)
[2021-06-02] MEDS ORDERED: REMDESIVIR 200 MG in SODIUM CHLORIDE 0.9% 210 ML IV ONE (03:30)
[2021-06-02] MEDS ORDERED: SODIUM CHLORIDE 0.9% 1000ML 1,000 ML IV ONE (04:34)
[2021-06-02] MEDS ORDERED: XOPENEX/ATROVENT 1.25mg/0.5MG NEB COMBO NEB PRN (04:54)
[2021-06-02] MEDS ORDERED: ACETAMINOPHEN 325 MG TAB PO PRN (04:54)
[2021-06-02] MEDS ORDERED: IPRATROPIUM BROMIDE NEB SOLN 0.02% 2.5 ML VIAL INH PRN (04:54)
[2021-06-02] MEDS ORDERED: PROMETHAZINE HCL 6.25 MG in SODIUM CHLORIDE 0.9% 50 ML IV PRN (04:54)
[2021-06-02] MEDS ORDERED: LEVALBUTEROL 1.25MG/0.5ML NEB INH PRN (04:54)
[2021-06-02 06:51] LABS: Hematocrit (blood only) 39.4 % (42-52); Hemoglobin 13.5 g/dL (14.0-18.0); Lymphocytes # (auto) 0.28 K/uL (1.2-3.4); Lymphocytes % (auto) 5.6 %; Mean Corpuscular Hemoglobin 34.4 pg (25-34); Mean Corpuscular Hgb Conc 34.3 g/dL (32-36); Mean Corpuscular Volume 100.3 fL (80-100); Mean Platelet Volume 12.6 fL (7.4-10.4); Monocytes # (auto) 0.46 K/uL (0.11-0.59); Monocytes % (auto) 9.2 %; Neutrophils # (auto) 4.27 K/uL (1.4-6.5); Neutrophils % (auto) 85.2 %; Platelet Count 136 K/uL (130-400); RDW Coefficient of Variation 13.3 % (11.5-14.5); RDW Standard Deviation 48.6 fL (36.4-46.3); Red Blood Count 3.93 M/uL (4.7-6.1); White Blood Count 5.01 K/uL (4.8-10.8)
--- NOTE | 2021-06-02 07:08 | CT Scan Report ---
CT head/brain wo con CLINICAL HISTORY: fall Technique: Contiguous axial CT images of the head were acquired from the base of the skull to the da ugo without intravenous contrast administration. Images were viewed in brain, subdural and bone [facility]. Automated dose lowering techniques and/or adjustment according to patient size were utilized for this exam. Comparison: Comparison is made to CT head 02/03/2006 Findings: Areas of decreased attenuation are present in the periventricular and subcortical white matter bilate rally consistent with small vessel ischemic disease. Generalized cerebral atrophy with commensurate e nlargement of the ventricles, sulci, and cisterns is also present. There is no acute intracranial hem orrhage or evidence of acute territorial infarction. No shift of the midline structures, mass effect, or extra-axial abnormalities are shown. Atherosclerotic calcifications are present in the intracran ial segments of the internal carotid arteries. Old lacunar infarct are seen bilaterally in the basal ganglia. Imaged portions of the paranasal sinuses and mastoid air cells are clear. The orbits appear normal. There are no acute fractures of the calvaria or scalp swelling. Impression: No acute intracranial hemorrhage, no evidence of acute territorial infarction or other acute intracra nial disease process. ACT 112: Negative or not required by law. Electronically signed by: Nile Storey M.D. 06/02/2021 7:06 AM
--- NOTE | 2021-06-02 07:14 | CT Scan Report ---
CT cervical spine wo con CLINICAL HISTORY: fall TECHNIQUE: Multidetector row helical CT of the cervical spine was performed without administration of intravenous contrast. Coronal and sagittal reformations were obtained. Automated dose lowering techn iques and/or adjustment according to patient size were utilized for this exam. Comparison: None available at the time of this dictation. FINDINGS: No acute fractures or subluxations are identified. Degenerative changes are seen in the visualized sp ine. The alignment is normal. Biapical scarring is seen in the lungs. IMPRESSION: Degenerative changes without evidence of acute bony injury. ACT 112: Negative or not required by law. Electronically signed by: Nile Sotrey M.D. 06/02/2021 7:13 AM
[2021-06-02 07:21] LABS: Albumin Level 3.4 gm/dl (3.4-5.0); BUN Creatinine Ratio 23.1 (10-20); Bilirubin Direct 0.1 mg/dl (0-0.2); Bilirubin,Total 0.4 mg/dl (0.2-1.0); C Reactive Protein 7.91 mg/dl (0-0.5); Calcium 8.4 mg/dl (8.5-10.1); Chol HDL Ratio 1.8 (0-5); Creatinine Clr Calc Pharmacy 97.5 ml/min; Est GFR (African American) 94.7 ml/min; Est GFR (Non-African American) 81.7 ml/min; Potassium 3.3 mmol/L (3.5-5.1); Total Protein 6.2 gm/dl (6.0-8.3)
[2021-06-02 07:29] LABS: Estimated Average Glucose 126 mg/dl
--- NOTE | 2021-06-02 07:30 | XRay Report ---
XR chest 1V portable CLINICAL HISTORY: SEPSIS. COMPARISON STUDY: 02/03/2006 TECHNIQUE: 1 view of the chest FINDINGS: Single frontal view of the chest demonstrates the cardiomediastinal silhouette to be within normal li mits. There is a decreased inspiratory effort with elevation of the hemidiaphragms and crowding of th e bronchovascular markings at the lung bases and centrally. The lungs are clear of alveolar opacities . There is no evidence for pleural effusion. There is no evidence for vascular congestion. There is n o acute osseous pathology. IMPRESSION: 1. There is a decreased inspiratory effort with otherwise no acute chest disease. ACT 112: Negative or not required by law. Electronically signed by: Adi Nettles M.D. 06/02/2021 7:29 AM
--- NOTE | 2021-06-02 08:25 | CT Scan Report ---
CT OF THE ABDOMEN AND PELVIS WITH CONTRAST CLINICAL HISTORY: Fall. Abdominal pain. COMPARISON STUDY: CT of the chest and abdomen February 03, 2006. TECHNIQUE: Following IV administration of 116 mL of Optiray, axial images of the abdomen and pelvis w ere obtained from the lung bases to the proximal femurs. Images were reviewed in the axial, sagittal, and coronal planes. IV contrast was administered without complication. Automated exposure control w as utilized for the study. A dose lowering technique was utilized adhering to the principles of ALAToña Reed. CT DOSE: 1787.10 mGy.cm FINDINGS: Please note that the chest CT will be reported separately. Note is made of multifocal airsp peggy opacities within the bilateral lower lobes with bronchial wall thickening. These findings are bet ter depicted on the chest CT. No hemoperitoneum or pneumoperitoneum is present. This exam is mildly c ompromised by motion artifact. There is no evidence for traumatic injury to the liver, spleen, adrena l glands, kidneys or pancreas. There is a right renal cyst. There is no biliary or pancreatic ductal dilatation. Caliber and wall thickness of small and large bowel are normal. There is no free fluid. M oderate to marked enlargement of the prostate is noted. No acute lumbar spine or pelvic fracture is n oted. Mild loss of height of the superior endplate of L4 is likely chronic. IMPRESSION: 1. No acute traumatic findings within the abdomen or pelvis. 2. Bilateral lower lobe airspace opacities with bronchial wall thickening. The findings favor pneumon ia or aspiration pneumonitis. 3. Enlarged prostate. ACT 112: Negative or not required by law. Electronically signed by: Pedro Davis M.D. 06/02/2021 8:24 AM
--- NOTE | 2021-06-02 08:49 | CT Scan Report ---
CT angio chest PE protocol CLINICAL HISTORY: Covid positive with cough. COMPARISON STUDY: Portable chest from 06/01/2021 CT DOSE: TECHNIQUE: CT Angio of the chest was performed.followed by image post processing with coronal, and s agittal MIP reformats. Contrast Volume: Optiray 320, 116 ml FINDINGS: Vasculature: There is homogeneous perfusion of the pulmonary vasculature bilaterally. No intraluminal filling defects or evidence for pulmonary embolus is seen. Airway: The airway is clear. No endobronchial lesion is identified. However, there is evidence for C entral endobronchial thickening bilaterally. Lungs: Mild centrilobular emphysematous changes are seen particularly involving the upper lobes bilat erally. The lungs are clear of acute alveolar opacities, air bronchograms or pulmonary nodules. There is minimal bibasilar atelectasis. Pleura: There is no evidence for pleural effusion. There is no evidence for pneumothorax. Mediastinum: There is no evidence for pathologic adenopathy. The heart size is within normal limits. Coronary artery calcification is present. The thoracic aorta is within normal limits. There is no gudelia dence for pericardial effusion. Upper abdomen:The adrenal glands are normal bilaterally. There is evidence for cholelithiasis with no CT evidence for acute cholecystitis. Osseous structures: There is no acute osseous pathology. Impression: 1. No CTA evidence for pulmonary embolus. 2. Central endobronchial thickening with minimal by basilar atelectasis. Otherwise, no acute chest di sease. 3. Coronary artery calcification. 4. Evidence for cholelithiasis. ACT 112: Negative or not required by law. Electronically signed by: Adi Nettles M.D. 06/02/2021 8:47 AM
[2021-06-02] MEDS: CHOLECALCIFEROL 5,000 UNITS 125 MCG TAB PO SCH (10:10)
[2021-06-02] MEDS: ZINC SULFATE 220 MG CAPSULE PO SCH (10:10)
[2021-06-02] MEDS: ASCORBIC ACID 500 MG TAB PO SCH (10:10)
[2021-06-02] MEDS: ENOXAPARIN INJ 40 MG/0.4 ML SYR SQ SCH (10:10)
[2021-06-02 10:12] LABS: C Reactive Protein 7.89 mg/dl (0-0.5)
[2021-06-02 10:32] LABS: Ferritin 159.6 ng/ml (8-388)
[2021-06-02 11:46] LABS: Appearance Urine Clear (Clear); Bilirubin Urine Negative (Negative); Blood Urine 3+ (Negative); Color Urine Dark Yellow; Glucose Urine UA Negative (Negative); Ketones Urine Trace (Negative); Leukocyte Esterase Urine Negative (Negative); Nitrite Urine Negative (Negative); Protein Urine 1+ (Negative); RBC Urine Automated >30 /hpf (0-4); Specific Gravity Urine > 1.045 (1.000-1.030); Urobilinogen Urine Negative (Negative)
[2021-06-02 11:58] LABS: Bacteria Urine Automated 1+ (Negative)
--- NOTE | 2021-06-02 15:25 | Electrocardiogram Report ---
Test Reason : Blood Pressure : / mmHG Vent. Rate : 077 BPM Atrial Rate : 077 BPM P-R Int : 132 ms QRS Dur : 078 ms QT Int : 392 ms P-R-T Axes : 052 -03 023 degrees QTc Int : 443 ms Sinus rhythm with marked sinus arrhythmia Otherwise normal ECG When compared with ECG of 04-FEB-2006 13:52, No significant change was found Confirmed by Craig Perry ([id number]) on 06/02/2021 3:25:22 PM Referred By: REFERRED SELF Confirmed By:Craig Perry
--- NOTE | 2021-06-02 15:47 | Electrocardiogram Report ---
Test Reason : Blood Pressure : / mmHG Vent. Rate : 064 BPM Atrial Rate : 064 BPM P-R Int : 122 ms QRS Dur : 074 ms QT Int : 414 ms P-R-T Axes : 039 -04 014 degrees QTc Int : 427 ms Normal sinus rhythm with sinus arrhythmia Normal ECG When compared with ECG of 01-JUN-2021 22:44, (unconfirmed) No significant change was found Confirmed by Craig Perry ([id number]) on 06/02/2021 3:47:38 PM Referred By: REFERRED SELF Confirmed By:Craig Perry
--- NOTE | 2021-06-02 16:47 | Hospitalist Progress Note ---
Date of Service June 02, 2021 Assessment & Plan Plan: Covid 19 Pneumonia -day 1 Remdesivir, day 02/17 Decadron -add vitamin D, C, zinc -CRP elevated at 7.9 -was on doxycycline and ceftriaxone--will d/c doxycycline, continue ceftriaxone for now. PCT negative, will repeat again tomorrow Acute hypoxic respiratory failure -continue oxygen to keep O2 sat>92% -patient counseled to prone NSTEMI Likely demand ischemia in setting of acute illness -TTE no wall motional abnormality -resume aggrenox -statin on hold due to transaminitis -resume atenolol 50mg daily -patient with history of CAD with prior stent, will ask for Cardiology consult -repeat troponin Rhabdomyolysis -continue IVF -repeat CK tomorrow HTN -atenolol and lisinopril held by admitting provider with initial concern for stroke with his facial asymmetry -will resume atenolol due to demand ischemia, continue to hold lisinopril Facial asymmetry -CT head negative, MRI brain and MRA head/neck pending DVT ppx -start SQ lovenox Admission and Anticipated Discharge Date Admission Date: June 02, 2021 Subjective Patient remains on 4L NC Poor historian but reports he has been unwell for past 5 days. Denies worsening shortness of breath or cough Remains afebrile Physical Exam Physical Exam: sitting in chair, no acute distress, very poor historian Respiratory: breathing comfortably, no accessory muscle use, no wheezing Cardiovascular: regular rate and rhythm, no murmurs/rubs/gallops Gastrointestinal (Abdomen): soft, non tender Musculoskeletal: no edema Neurologic: awake, poor historian, spontaneously moving extremities Psychiatric: speech is tangential Results & Data Results & Data ([facility]) Vital Signs (Past 12 Hours) Vital Signs Temp Pulse Pulse Resp BP BP Pulse Ox 06/02/21 14:57 36.9 C 86 16 128/88 97 06/02/21 14:22 93 06/02/21 10:50 36.8 C 71 16 155/76 H 96 06/02/21 09:57 70 06/02/21 07:49 36.9 C 74 16 149/80 H 92 06/02/21 06:04 74 06/02/21 04:55 36.8 C 75 18 156/75 H 94 06/02/21 04:54 36.8 C 75 18 156/75 H 94 Pulse Ox 06/02/21 14:57 06/02/21 14:22 06/02/21 10:50 06/02/21 09:57 06/02/21 07:49 06/02/21 06:04 06/02/21 04:55 06/02/21 04:54 94 Laboratory Results Short CBC 06/01/21 06/02/21 Range/Units 22:50 06:10 WBC 7.35 5.01 (4.8-10.8) K/uL Hgb 13.7 L 13.5 L (14.0-18.0) g/dL Hct 39.2 L 39.4 L (42-52) % Plt Count 138 136 (130-400) K/uL BMP 06/01/21 06/02/21 22:50 06:10 Sodium 137 137 Potassium 3.4 L 3.3 L Chloride 104 104 Carbon Dioxide 25 25 BUN 21 18 Creatinine 0.84 0.78 Glucose 129 H 147 H Calcium 9.1 8.4 L Cardiac Enzymes 06/02/21 Range/Units 00:58 Total Creatine Kinase 6972 H (30-223) U/L Liver Function 06/01/21 06/02/21 Range/Units 22:50 06:10 Total Bilirubin 0.6 0.4 (0.2-1.0) mg/dl Direct Bilirubin 0.1 (0-0.2) mg/dl AST 72 H 142 H (13-39) U/L ALT 33 46 (7-52) U/L Alkaline Phosphatase 68 61 (34-104) U/L Albumin 3.8 3.4 (3.4-5.0) gm/dl Urine 06/02/21 Range/Units Unknown Urine Color Dark Yellow Urine Appearance Clear (Clear) Urine pH 5.0 (4.5-7.5) Ur Specific [place] > 1.045 H (1.000-1.030) Urine Protein 1+ H (Negative) Urine Glucose (UA) Negative (Negative) Medications Administered Current Inpatient Medications Acetaminophen (Acetaminophen 325 Mg Tab) 650 mg PO Q4H PRN PRN Reason: Pain or Fever Stop: 07/02/21 04:53 Ascorbic Acid (Ascorbic Acid 500 Mg Tab) [facility]: 07/02/21 08:59 Last Admin: 06/02/21 10:10 Dose: 500 mg Documented by: Enoxaparin Sodium (Enoxaparin Inj 40 Mg/0.4 Ml Syr) 40 mg SQ QAM [facility] Stop: 07/02/21 09:29 Last Admin: 06/02/21 10:10 Dose: 40 mg Documented by: Sodium Chloride (Nss 1000ml) 1,000 mls @ 80 mls/hr IV .[id number] ONE Stop: 06/02/21 17:03 Last Infusion: 06/02/21 10:19 Dose: 80 mls/hr Documented by: Sodium Chloride (Nss 1000ml) 1,000 mls @ 80 mls/hr IV .[id number] [facility] Stop: 06/03/21 16:59 Ceftriaxone Sodium 2,000 mg/ (Dextrose) 70 mls @ 140 mls/hr IV Q24H [facility]; Protocol Stop: 06/10/21 03:59 Promethazine HCl 6.25 mg/ (Sodium Chloride) 50.25 mls @ 201 mls/hr IV Q6H PRN PRN Reason: Nausea And Vomiting Stop: 07/02/21 04:53 Remdesivir 100 mg/ Sodium (Chloride) 250 mls @ 250 mls/hr IV Q24H [facility] Stop: 06/06/21 12:59 Dexamethasone 6 mg/ Syringe 1.5 mls @ 1 mls/min IV DAILY [facility] Stop: 07/03/21 08:59 Ipratropium [place] (Ipratropium [place] Neb Soln 0.02% 2.5 Ml Vial) 0.5 mg INH Q4H PRN PRN Reason: SOB/Wheezing Stop: 07/02/21 04:53 Levalbuterol HCl (Levalbuterol 1.25mg/0.5ml Neb) 1.25 mg INH Q4H PRN PRN Reason: SOB/Wheezing Stop: 07/02/21 04:53 Vitamin D (Cholecalciferol 5,000 Units 125 Mcg Tab) 5,000 [facility] [place]: 07/02/21 08:59 Last Admin: 06/02/21 10:10 Dose: 5,000 units Documented by: Zinc Sulfate (Zinc Sulfate 220 Mg Capsule) [facility] [place]: 07/02/21 08:59 Last Admin: 06/02/21 10:10 Dose: 220 mg Documented by:
[2021-06-02] MEDS: SODIUM CHLORIDE 0.9% 1000ML 1,000 ML IV SCH (17:19)
--- NOTE | 2021-06-02 17:36 | Cardiology Consultation ---
Date of Consultation June 02, 2021 Assessment & Plan (1) Acute hypoxemic respiratory failure: (2) COVID: (3) Elevated troponin: Pt with history of known CAD, chronic stable angina Presents with SARS-CoV-2 related respiratory failure. Mild troponin elevation without EKG changes or complaint of angina. Agree with supportive care for respiratory illness, Remdesivir, Dexamethasone. Continue chronic outpt cardiac medications. History of Present Illness Attending Physician: Cesar Rivera MD History of Present Illness Mr Michelle is an 85 year old female seen in cardiology consultation per the request of Dr Rivera for the evaluation of elevated HS troponin. Pt presented to the ED with cough and recent fall. He reports several days ago , he fell on the way to the front door and could not get up. He was inside. He remained down on ground for several hours. He has been found to have SARS-CoV-2. At the time of my assessment, pt with frequent non productive cough. Pulse oximetry 97% on 4 L/m oxygen , weaned from 6 L/m earlier today. Patient follows with Dr Greenberg of our office for history of CAD and chronic stable exertional angina. At present pt denies recent angina. Problem List: 1.Diffuse coronary atherosclerosis by cardiac catheterization, 2005. 2.Prior coronary intervention with PTCA and stenting of the left anterior descending, diagonal, with residual moderate narrowings in a marginal branch, distal left circumflex, and distal LAD. 3.Stable class I-II angina pectoris. 4.Hypertension. 5.Hyperlipidemia. 6. Acoustic Neuroma Allergies Allergy/AdvReac Type Severity Reaction Status Date / Time No Known Allergies Allergy Unknown Verified 06/01/21 22:49 Home Medications Medication Instructions Recorded Confirmed Type aspirin 25 mg-dipyridamole 200 mg 1 cap PO BID 06/01/21 06/01/21 History capsule,ext.release 12 hr multiphase aspirin 81 mg tablet,delayed 81 mg PO DAILY 06/01/21 06/01/21 History release atenolol 50 mg tablet 50 mg PO DAILY 06/01/21 06/01/21 History cyanocobalamin (vitamin B-12) 1,000 mcg PO DAILY 06/01/21 06/01/21 History 1,000 mcg tablet (Vitamin B-12) lisinopril 40 mg tablet 40 mg PO HS 06/01/21 06/01/21 History lutein 20 mg tablet 0 mg PO DAILY 06/01/21 06/01/21 History nitroglycerin 0.4 mg sublingual 0.4 mg SUBLINGUAL DIRECTED PRN 06/01/21 06/01/21 History tablet (Nitrostat) simvastatin 20 mg tablet 20 mg PO HS 06/01/21 06/01/21 History Patient History Social History Smoking Status: Never smoker Second Hand Exposure: No; Do You Dip or Chew Tobacco: No; Tobacco Cessation Education Requested by Patient: No Hx Alcohol Use: Yes Alcohol type: beer Hx Substance Use: No Preferred Language: Monegasque Area Manager Required: No Beliefs That Will Affect Care: None Current Living Situation: Spouse Current Living Situation Comment: house Other Information That Helps Us Care for You: No Feels Safe at Home: Yes Safety Concerns: Feels Safe At This Time Assistive Devices: Glasses Review of Systems Review of Systems: All systems reviewed & are unremarkable except as noted in HPI & below Physical Exam Physical Exam: Temp Pulse Resp BP Pulse Ox 36.9 C 68 16 128/88 97 06/02/21 14:57 06/02/21 17:29 06/02/21 14:57 06/02/21 14:57 06/02/21 14:57 Constitutional: + ill appearing Respiratory: Auscultation: + rhonchi and + wheezes Cardiovascular: RRR, no murmur, no edema Gastrointestinal (Abdomen): normal bowel sounds, soft, nontender, no hepatosplenomegaly Results & Data ([facility]) Vital Signs (Past 12 Hours) Vital Signs Temp Pulse Pulse Resp BP BP Pulse Ox 06/02/21 14:57 36.9 C 86 16 128/88 97 06/02/21 14:22 93 06/02/21 10:50 36.8 C 71 16 155/76 H 96 06/02/21 09:57 70 06/02/21 07:49 36.9 C 74 16 149/80 H 92 06/02/21 06:04 74 Laboratory Results Cardiac Enzymes 06/01/21 06/01/21 06/02/21 Range/Units 22:50 22:50 00:58 AST 72 H (13-39) U/L Troponin I High Sens 67.1 H* 84.7 H* D (0-20) pg/ml 06/02/21 06/02/21 Range/Units 06:10 06:10 AST 142 H (13-39) U/L Troponin I High Sens 126.8 H* D (0-20) pg/ml Coagulation 06/01/21 Range/Units 22:50 PT 10.6 (9.0-12.0) Seconds APTT 29.0 (21.0-31.0) Seconds Lipids 06/02/21 Range/Units 06:10 Triglycerides 42 (0-150) mg/dl Cholesterol 122 (0-200) mg/dl HDL Cholesterol 67 mg/dl Cholesterol/HDL Ratio 1.8 (0-5) CBC 06/01/21 06/02/21 Range/Units 22:50 06:10 WBC 7.35 5.01 (4.8-10.8) K/uL RBC 3.97 L 3.93 L (4.7-6.1) M/uL Hgb 13.7 L 13.5 L (14.0-18.0) g/dL Hct 39.2 L 39.4 L (42-52) % Plt Count 138 136 (130-400) K/uL Neut # (Auto) 6.09 4.27 (1.4-6.5) K/uL Lymph # (Auto) 0.56 L 0.28 L (1.2-3.4) K/uL [place] # (Auto) 0.68 H 0.46 (0.11-0.59) K/uL Eos # (Auto) 0.00 0.00 (0-0.5) K/uL Baso # (Auto) 0.01 0.00 (0-0.2) K/uL Comprehensive Metabolic Panel 06/01/21 06/02/21 Range/Units 22:50 06:10 Sodium 137 137 (136-145) mmol/L Potassium 3.4 L 3.3 L (3.5-5.1) mmol/L Chloride 104 104 (98-107) mmol/L Carbon Dioxide 25 25 (21-32) mmol/L BUN 21 18 (6-23) mg/dl Creatinine 0.84 0.78 (0.6-1.4) mg/dl Glucose 129 H 147 H (70-99(Fasting)) mg/dl Calcium 9.1 8.4 L (8.5-10.1) mg/dl Direct Bilirubin 0.1 (0-0.2) mg/dl AST 72 H 142 H (13-39) U/L ALT 33 46 (7-52) U/L Alkaline Phosphatase 68 61 (34-104) U/L Total Protein 6.6 6.2 (6.0-8.3) gm/dl Albumin 3.8 3.4 (3.4-5.0) gm/dl Intake and Output 06/02/21 06/02/21 06/02/21 06:59 14:59 22:59 Intake Total 694 / 694 360 / 360 Output Total 150 / 150 Balance 694 / 694 210 / 210 Intake: IV 574 / 574 360 / 360 Doxycycline Hyclate 100 mg In 110 / 110 Dextrose 5% 100 ml @ 50 mls/hr IV NOW STA Rx#:[id number] Remdesivir 200 mg In Sodium 250 / 250 Chloride 0.9% 210 ml @ 125 mls/ hr IV ONE ONE Rx#:[id number] Sodium Chloride 0.9% 1000ML 1, 504 / 504 0 / 0 000 ml @ 80 mls/hr IV .[id number] ONE Rx#:[id number] cefTRIAXone SODIUM 2,000 mg In 70 / 70 70 ml @ 140 mls/hr IV NOW STA Rx#:[id number] Oral 120 / 120 Output: Urine 150 / 150 Other: Weight 151 kg 151 kg Weight Measurement Method Built in [facility] Patient Weight 06/03/21 06:59 Weight 151 kg Diagnostic Findings EKG performed today 06/02/21: SR at 64 bpm , no significant ST changes. Unchanged compared to 06/01. Echo 06/02/21, reviewed independently: Normal LV wall motion, LVEF 55-60% Grade I diastolic dysfunction Mild AV calcification without
[2021-06-02] MEDS: DIPYRIDAMOLE/ASPIRIN CAP PO SCH (20:53)
[2021-06-02] MEDS ORDERED: DOXYCYCLINE HYCLATE 100 MG CAP PO SCH (21:00)
[2021-06-03] MEDS: cefTRIAXone SODIUM 2,000 MG in DEXTROSE 5% 50 ML IV SCH (03:19)
[2021-06-03 05:59] LABS: Hematocrit (blood only) 38.6 % (42-52); Hemoglobin 13.1 g/dL (14.0-18.0); Mean Corpuscular Hgb Conc 33.9 g/dL (32-36); Mean Corpuscular Volume 100.3 fL (80-100); Mean Platelet Volume 12.6 fL (7.4-10.4); Platelet Count 140 K/uL (130-400); RDW Coefficient of Variation 13.3 % (11.5-14.5); RDW Standard Deviation 49.5 fL (36.4-46.3); Red Blood Count 3.85 M/uL (4.7-6.1); White Blood Count 4.92 K/uL (4.8-10.8)
[2021-06-03 06:35] LABS: Troponin I High Sensitivity 48.6 pg/ml (0-20)
[2021-06-03 07:03] LABS: Albumin Globulin Ratio 1.1 (0.9-2); Albumin Level 3.1 gm/dl (3.4-5.0); BUN Creatinine Ratio 31.1 (10-20); Bilirubin,Total 0.4 mg/dl (0.2-1.0); C Reactive Protein 12.77 mg/dl (0-0.5); Calcium 8.1 mg/dl (8.5-10.1); Creatinine Clr Calc Pharmacy 69.3 ml/min; Est GFR (African American) 96.8 ml/min; Est GFR (Non-African American) 83.5 ml/min; Globulin 2.7 gm/dl (2.5-4.0); Potassium 3.9 mmol/L (3.5-5.1); Total Protein 5.8 gm/dl (6.0-8.3)
[2021-06-03] MEDS: SODIUM CHLORIDE 0.9% 1000ML 1,000 ML IV SCH (08:50)
[2021-06-03] MEDS: ASCORBIC ACID 500 MG TAB PO SCH (08:51)
[2021-06-03] MEDS: ATENOLOL 50 MG TABLET PO SCH (08:51)
[2021-06-03] MEDS: DIPYRIDAMOLE/ASPIRIN CAP PO SCH ×2 (08:52→22:18)
[2021-06-03] MEDS: dexAMETHasone 6 MG in SYRINGE 0 ML IV SCH (08:52)
[2021-06-03] MEDS: CHOLECALCIFEROL 5,000 UNITS 125 MCG TAB PO SCH (08:52)
[2021-06-03] MEDS: ZINC SULFATE 220 MG CAPSULE PO SCH (08:53)
[2021-06-03] MEDS: ENOXAPARIN INJ 40 MG/0.4 ML SYR SQ SCH (08:53)
--- NOTE | 2021-06-03 09:59 | Magnetic Resonance Report ---
MRA OF THE INTRACRANIAL CIRCULATION WITHOUT CONTRAST CLINICAL HISTORY: Left facial weakness. COMPARISON STUDY: Head CT June 02, 2021. TECHNIQUE: Utilizing a 1.5 Darlin magnet and 3-D [id number] technique, unenhanced MRA of the intra cranial circulation was obtained. FINDINGS: Please note that the MRI of the brain will be reported separately. The bilateral M1, M2, A1 and A2 segments are patent. No central occlusion within the anterior circulation is identified. No i ntracranial aneurysm is identified. No flow is identified within the distal cervical and proximal int racranial portion of the left vertebral artery. There is flow within the distal most aspect of the le ft vertebral artery. Otherwise, the posterior circulation is intact. IMPRESSION: 1. No flow identified within the distal cervical and proximal intracranial portion of the left verteb ral artery with distal reconstitution or retrograde flow. 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 Trace flow could appear similar. 2. Otherwise, unremarkable MRA of the head. ACT 112: Negative or not required by law. Electronically signed by: Pedro Davis M.D. 06/03/2021 9:57 AM
[2021-06-03] MEDS: REMDESIVIR 100 MG in SODIUM CHLORIDE 0.9% 230 ML IV SCH (11:44)
--- NOTE | 2021-06-03 13:54 | Magnetic Resonance Report ---
MRI OF THE BRAIN WITHOUT CONTRAST CLINICAL HISTORY: Left facial weakness. COMPARISON STUDY: Head CT February 03, 2006 and June 02, 2021. TECHNIQUE: Utilizing a 1.5 Darlin magnet and dedicated coil, multiplanar, multiecho imaging of the bra in was performed without IV contrast. FINDINGS: Note is made of a 9 mm slightly hyperintense focus within the right frontal lobe on diffusi on-weighted sequence axial image 17 of 24. This is hyperintense on the ADC map and therefore represen ts T2 shine through. There is no evidence for acute infarct. Moderate atrophy is noted. White matter T2 hyperintense foci suggest extensive small vessel disease. There are old infarcts within the bilate ral basal ganglia. Trace blood products within the right cerebellar hemisphere present. No architectu ral collections are present. Basal cisterns are patent. Calvarial signal is normal. No intracranial m asses identified on this unenhanced examination. There is no evidence for sinusitis. Minimal ethmoid sinus mucosal thickening is present. Note is made of a 6 mm mass within the right internal auditory c anal. IMPRESSION: 1. No acute intracranial findings. 2. Moderate atrophy. 3. Extensive white matter T2 hyperintense foci suggest small vessel disease. 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 4. 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 ACT 112: Negative or not required by law. Electronically signed by: Pedro Davis M.D. 06/03/2021 1:52 PM
[2021-06-03] MEDS ORDERED: Nursing to Pharmacy Communication SCH (15:00)
--- NOTE | 2021-06-03 15:33 | Hospitalist Progress Note ---
Date of Service June 03, 2021 Assessment & Plan (1) Acute hypoxemic respiratory failure: Plan: Covid 19 Pneumonia -day 2/ Remdesivir, day 02/17 Decadron -add vitamin D, C, zinc -CRP elevated at 7.9 -was on doxycycline and ceftriaxone--will d/c doxycycline, continue ceftriaxone for now. PCT negative, will repeat again tomorrow Acute hypoxic respiratory failure -continue oxygen to keep O2 sat>92% -patient counseled to prone NSTEMI Likely demand ischemia in setting of acute illness -TTE no wall motional abnormality -resume aggrenox -statin on hold due to transaminitis -resume atenolol 50mg daily -patient with history of CAD with prior stent, will ask for Cardiology consult -repeat troponin Rhabdomyolysis -continue IVF -repeat CK tomorrow HTN -atenolol and lisinopril held by admitting provider with initial concern for stroke with his facial asymmetry -will resume atenolol due to demand ischemia, continue to hold lisinopril Facial asymmetry -CT head negative, MRI brain moderate brain loss, MRA with chronic vascular disease DVT ppx - SQ lovenox Disposition- Evaluated by PT, recommend acute rehab Admission and Anticipated Discharge Date Admission Date: June 02, 2021 Subjective No events overnight, remains on 3L NC Patient poor historian "there's nothing wrong with my cough! there's something wrong with your machine!" Physical Exam Physical Exam: Poor historian, sitting in chair, no acute distress Respiratory: +wet audible cough, no wheezing/rales Cardiovascular: regular rate and rhythm, no murmurs/rubs/gallops Gastrointestinal (Abdomen): soft, non tender, non distended Musculoskeletal: no edema Neurologic: baseline dementia, spontaneously moving extremities Results & Data Results & Data ([facility]) Vital Signs (Past 12 Hours) Vital Signs Temp Pulse Pulse Resp BP Pulse Ox Pulse Ox 06/03/21 10:51 37.2 C 71 18 132/81 96 06/03/21 08:00 83 06/03/21 04:54 94 Laboratory Results Short CBC 06/03/21 Range/Units 05:23 WBC 4.92 (4.8-10.8) K/uL Hgb 13.1 L (14.0-18.0) g/dL Hct 38.6 L (42-52) % Plt Count 140 (130-400) K/uL BMP 06/03/21 05:23 Sodium 138 Potassium 3.9 Chloride 107 Carbon Dioxide 22 BUN 23 Creatinine 0.74 Glucose 93 Calcium 8.1 L Cardiac Enzymes 06/03/21 Range/Units 05:23 Total Creatine Kinase 5899 H (30-223) U/L Liver Function 06/03/21 Range/Units 05:23 Total Bilirubin 0.4 (0.2-1.0) mg/dl AST 167 H (13-39) U/L ALT 58 H (7-52) U/L Alkaline Phosphatase 56 (34-104) U/L Albumin 3.1 L (3.4-5.0) gm/dl Medications Administered Current Inpatient Medications Acetaminophen (Acetaminophen 325 Mg Tab) 650 mg PO Q4H PRN PRN Reason: Pain or Fever Stop: 07/02/21 04:53 Ascorbic Acid (Ascorbic Acid 500 Mg Tab) 500 mg PO [facility] Stop: 07/02/21 08:59 Last Admin: 06/03/21 08:51 Dose: 500 mg Documented by: Atenolol (Atenolol 50 Mg Tablet) 50 mg PO [facility] Stop: 07/03/21 08:59 Last Admin: 06/03/21 08:51 Dose: 50 mg Documented by: Dipyridamole/Aspirin (Dipyridamole/Aspirin Cap) 1 cap PO BID [facility] Stop: 07/02/21 20:59 Last Admin: 06/03/21 08:52 Dose: 1 cap Documented by: Enoxaparin Sodium (Enoxaparin Inj 40 Mg/0.4 Ml Syr) 40 mg SQ [facility] Stop: 07/02/21 09:29 Last Admin: 06/03/21 08:53 Dose: 40 mg Documented by: Sodium Chloride (Nss 1000ml) 1,000 mls @ 80 mls/hr IV .[id number] [facility] Stop: 06/03/21 16:59 Last Admin: 06/03/21 08:50 Dose: 80 mls/hr Documented by: Ceftriaxone Sodium 2,000 mg/ (Dextrose) 70 mls @ 140 mls/hr IV Q24H [facility]; Protocol Stop: 06/10/21 03:59 Last Infusion: 06/03/21 03:56 Dose: Infused Documented by: Promethazine HCl 6.25 mg/ (Sodium Chloride) 50.25 mls @ 201 mls/hr IV Q6H PRN PRN Reason: Nausea And Vomiting Stop: 07/02/21 04:53 Remdesivir 100 mg/ Sodium (Chloride) 250 mls @ 250 mls/hr IV Q24H [facility] Stop: 06/06/21 12:59 Last Infusion: 06/03/21 12:44 Dose: Infused Documented by: Dexamethasone 6 mg/ Syringe 1.5 mls @ 1 mls/min IV DAILY [facility] Stop: 07/03/21 08:59 Last Admin: 06/03/21 08:52 Dose: 1 mls/min Documented by: Ipratropium [place] (Ipratropium [place] Neb Soln 0.02% 2.5 Ml Vial) 0.5 mg INH Q4H PRN PRN Reason: SOB/Wheezing Stop: 07/02/21 04:53 Levalbuterol HCl (Levalbuterol 1.25mg/0.5ml Neb) 1.25 mg INH Q4H PRN PRN Reason: SOB/Wheezing Stop: 07/02/21 04:53 Vitamin D (Cholecalciferol 5,000 Units 125 Mcg Tab) 5,000 units PO QAM [facility] Stop: 07/02/21 08:59 Last Admin: 06/03/21 08:52 Dose: 5,000 units Documented by: Zinc Sulfate (Zinc Sulfate 220 Mg Capsule) 220 mg PO QAM [facility] Stop: 07/02/21 08:59 Last Admin: 06/03/21 08:53 Dose: 220 mg Documented by:
[2021-06-04] MEDS: cefTRIAXone SODIUM 2,000 MG in DEXTROSE 5% 50 ML IV SCH (03:59)
[2021-06-04 07:28] LABS: Albumin Globulin Ratio 1.1 (0.9-2); Albumin Level 2.9 gm/dl (3.4-5.0); BUN Creatinine Ratio 34.2 (10-20); Bilirubin,Total 0.4 mg/dl (0.2-1.0); C Reactive Protein 9.31 mg/dl (0-0.5); Calcium 8.3 mg/dl (8.5-10.1); Creatinine Clr Calc Pharmacy 70.3 ml/min; Est GFR (African American) 97.3 ml/min; Globulin 2.6 gm/dl (2.5-4.0); Total Protein 5.5 gm/dl (6.0-8.3)
[2021-06-04 07:29] LABS: Mean Corpuscular Hgb Conc 33.9 g/dL (32-36)
[2021-06-04 07:48] LABS: Hematocrit (blood only) 38.4 % (42-52); Mean Corpuscular Hemoglobin 33.5 pg (25-34); Mean Platelet Volume 4.3 fL (7.4-10.4); Platelet Count 132 K/uL (130-400); RDW Coefficient of Variation 13.2 % (11.5-14.5); RDW Standard Deviation 47.5 fL (36.4-46.3); Red Blood Count 3.88 M/uL (4.7-6.1); White Blood Count 5.83 K/uL (4.8-10.8)
[2021-06-04] MEDS: ASCORBIC ACID 500 MG TAB PO SCH (09:28)
[2021-06-04] MEDS: CHOLECALCIFEROL 5,000 UNITS 125 MCG TAB PO SCH (09:29)
[2021-06-04] MEDS: dexAMETHasone 6 MG in SYRINGE 0 ML IV SCH (09:29)
[2021-06-04] MEDS: ATENOLOL 50 MG TABLET PO SCH (09:29)
[2021-06-04] MEDS: ENOXAPARIN INJ 40 MG/0.4 ML SYR SQ SCH (09:30)
[2021-06-04] MEDS: DIPYRIDAMOLE/ASPIRIN CAP PO SCH ×2 (09:30→20:24)
[2021-06-04] MEDS: ZINC SULFATE 220 MG CAPSULE PO SCH (09:30)
[2021-06-04] MEDS: REMDESIVIR 100 MG in SODIUM CHLORIDE 0.9% 230 ML IV SCH (11:46)
--- NOTE | 2021-06-04 17:36 | Hospitalist Progress Note ---
Date of Service June 04, 2021 Assessment & Plan (1) Acute hypoxemic respiratory failure: Plan: Acute hypoxic respiratory failure with Covid 19 infection -day 3/5 Remdesivir, day 2/10 Decadron, on rocephin- sputum clx pending - will monitor inflammatory markers - wean down supplemental oxygen as tolerated - continue IS Elevated troponin- likely demand ischemia in setting of acute illness - seen by cardio- continue home meds -TTE no wall motional abnormality Rhabdomyolysis- improving on IVF- recheck in am HTN- resume home meds Facial asymmetry -CT head negative, MRI brain moderate brain loss, MRA with chronic vascular disease - MRI brain with 6mm mass in right auditory canal consistent with vestibular schwannoma DVT ppx- SQ lovenox Disposition- Evaluated by PT, recommend acute rehab Admission and Anticipated Discharge Date Admission Date: June 02, 2021 Subjective Seen and examined at bedside. States he was able to talk to his and she is relieved. States feeling better. Denies any shortness of breath. Still has cough with yellow expectoration. Recommended to use IS. No fever, chills, chest pain, nausea, vomiting. Appetite okay. Loose bowel movement about once a day. Physical Exam Physical Exam: General: Elderly male, sick looking, on 2 L NC, not in acute distress HEENT: EOMI, KATHY, MMM Chest: Diminished breath sounds bilaterally CVS: Regular rate and rhythm, normal heart sounds, no murmur Abdomen: Soft, non tender, not distended, normal bowel sounds Neuro: Awake, alert, oriented, conversing well, non focal Extremities: No cyanosis, clubbing or edema Results & Data Results & Data ([facility]) Vital Signs (Past 12 Hours) Vital Signs Temp Pulse Pulse Resp BP BP Pulse Ox 06/04/21 16:36 36.6 C 58 L 20 152/63 H 97 06/04/21 11:44 36.7 C 57 L 20 124/71 97 06/04/21 07:05 63 Laboratory Results Short CBC 06/04/21 Range/Units 05:46 WBC 5.83 (4.8-10.8) K/uL Hgb 13.0 L (14.0-18.0) g/dL Hct 38.4 L (42-52) % Plt Count 132 (130-400) K/uL BMP 06/04/21 05:46 Sodium 139 Potassium 4.0 Chloride 106 Carbon Dioxide 27 BUN 25 H Creatinine 0.73 Glucose 129 H Calcium 8.3 L Cardiac Enzymes 06/04/21 Range/Units 05:46 Total Creatine Kinase 1880 H (30-223) U/L Liver Function 06/04/21 Range/Units 05:46 Total Bilirubin 0.4 (0.2-1.0) mg/dl AST 107 H (13-39) U/L ALT 50 (7-52) U/L Alkaline Phosphatase 55 (34-104) U/L Albumin 2.9 L (3.4-5.0) gm/dl Medications Administered Current Inpatient Medications Acetaminophen (Acetaminophen 325 Mg Tab) 650 mg PO Q4H PRN PRN Reason: Pain or Fever Stop: 07/02/21 04:53 Ascorbic Acid (Ascorbic Acid 500 Mg Tab) 500 mg PO [facility] Stop: 07/02/21 08:59 Last Admin: 06/04/21 09:28 Dose: 500 mg Documented by: Atenolol (Atenolol 50 Mg Tablet) 50 mg PO [facility] Stop: 07/03/21 08:59 Last Admin: 06/04/21 09:29 Dose: 50 mg Documented by: Dipyridamole/Aspirin (Dipyridamole/Aspirin Cap) 1 cap PO BID [facility] Stop: 07/02/21 20:59 Last Admin: 06/04/21 09:30 Dose: 1 cap Documented by: Enoxaparin Sodium (Enoxaparin Inj 40 Mg/0.4 Ml Syr) 40 mg SQ [facility] Stop: 07/02/21 09:29 Last Admin: 06/04/21 09:30 Dose: 40 mg Documented by: Ceftriaxone Sodium 2,000 mg/ (Dextrose) 70 mls @ 140 mls/hr IV Q24H [facility]; Protocol Stop: 06/10/21 03:59 Last Infusion: 06/04/21 04:30 Dose: Infused Documented by: Promethazine HCl 6.25 mg/ (Sodium Chloride) 50.25 mls @ 201 mls/hr IV Q6H PRN PRN Reason: Nausea And Vomiting Stop: 07/02/21 04:53 Remdesivir 100 mg/ Sodium (Chloride) 250 mls @ 250 mls/hr IV Q24H [facility] Stop: 06/06/21 12:59 Last Infusion: 06/04/21 12:46 Dose: Infused Documented by: Dexamethasone 6 mg/ Syringe 1.5 mls @ 1 mls/min IV DAILY [facility] Stop: 07/03/21 08:59 Last Admin: 06/04/21 09:29 Dose: 1 mls/min Documented by: Ipratropium [place] (Ipratropium [place] Neb Soln 0.02% 2.5 Ml Vial) 0.5 mg INH Q4H PRN PRN Reason: SOB/Wheezing Stop: 07/02/21 04:53 Levalbuterol HCl (Levalbuterol 1.25mg/0.5ml Neb) 1.25 mg INH Q4H PRN PRN Reason: SOB/Wheezing Stop: 07/02/21 04:53 Vitamin D (Cholecalciferol 5,000 Units 125 Mcg Tab) 5,000 units PO QAM [facility] Stop: 07/02/21 08:59 Last Admin: 06/04/21 09:29 Dose: 5,000 units Documented by: Zinc Sulfate (Zinc Sulfate 220 Mg Capsule) 220 mg PO QAM [facility] Stop: 07/02/21 08:59 Last Admin: 06/04/21 09:30 Dose: 220 mg Documented by:
[2021-06-04] MEDS: guaiFENesin 600 MG TABCR PO SCH (20:25)
[2021-06-04] MEDS: lisinopril 40 MG TAB PO SCH (20:53)
[2021-06-05] MEDS: cefTRIAXone SODIUM 1,000 MG in DEXTROSE 5% 50 ML IV SCH (06:13)
[2021-06-05 07:16] LABS: Hematocrit (blood only) 39.7 % (42-52); Hemoglobin 13.6 g/dL (14.0-18.0); Mean Corpuscular Hemoglobin 33.6 pg (25-34); Mean Corpuscular Hgb Conc 34.3 g/dL (32-36); Mean Platelet Volume 12.3 fL (7.4-10.4); Platelet Count 174 K/uL (130-400); RDW Standard Deviation 46.9 fL (36.4-46.3); Red Blood Count 4.05 M/uL (4.7-6.1); White Blood Count 9.28 K/uL (4.8-10.8)
[2021-06-05 07:34] LABS: Albumin Globulin Ratio 1.2 (0.9-2); BUN Creatinine Ratio 37.6 (10-20); Bilirubin,Total 0.5 mg/dl (0.2-1.0); C Reactive Protein 4.91 mg/dl (0-0.5); Calcium 8.4 mg/dl (8.5-10.1); Creatinine Clr Calc Pharmacy 60.4 ml/min; Est GFR (African American) 91.4 ml/min; Est GFR (Non-African American) 78.9 ml/min; Globulin 2.5 gm/dl (2.5-4.0); Phosphorus 3.1 mg/dl (2.5-4.9); Potassium 4.1 mmol/L (3.5-5.1); Total Protein 5.5 gm/dl (6.0-8.3)
[2021-06-05] MEDS: ATENOLOL 50 MG TABLET PO SCH (08:07)
[2021-06-05] MEDS: ASCORBIC ACID 500 MG TAB PO SCH (08:08)
[2021-06-05] MEDS: ZINC SULFATE 220 MG CAPSULE PO SCH (08:08)
[2021-06-05] MEDS: DIPYRIDAMOLE/ASPIRIN CAP PO SCH ×2 (08:08→20:31)
[2021-06-05] MEDS: CHOLECALCIFEROL 5,000 UNITS 125 MCG TAB PO SCH (08:09)
[2021-06-05] MEDS: ENOXAPARIN INJ 40 MG/0.4 ML SYR SQ SCH (08:09)
[2021-06-05] MEDS: guaiFENesin 600 MG TABCR PO SCH ×2 (08:09→20:30)
[2021-06-05] MEDS: dexAMETHasone 6 MG in SYRINGE 0 ML IV SCH (08:09)
[2021-06-05] MEDS: REMDESIVIR 100 MG in SODIUM CHLORIDE 0.9% 230 ML IV SCH (13:23)
--- NOTE | 2021-06-05 15:43 | Hospitalist Progress Note ---
Date of Service June 05, 2021 Assessment & Plan (1) Acute hypoxemic respiratory failure: Plan: Acute hypoxic respiratory failure with Covid 19 infection -day 4/ Remdesivir, day 3/10 Decadron, on rocephin- low utility of sputum clx at this point as he has been on ABx for several days. - Inflammatory markers continue to improve - wean down supplemental oxygen as tolerated - continue IS, more OOB activities Elevated troponin- likely demand ischemia in setting of acute illness - seen by cardio- continue home meds -TTE no wall motional abnormality Rhabdomyolysis- improving; s/p IVF. HTN- On tenormin. Home lisinopril was resumed yesterday- BP still elevated- will have HLZ prn- If needs frequently, will add norvasc. Facial asymmetry -CT head negative, MRI brain moderate brain loss, MRA with chronic vascular disease - MRI brain with 6mm mass in right auditory canal consistent with vestibular schwannoma DVT ppx- SQ lovenox Disposition- Pending completion of remdesevir course after which he will need rehab. CM following. Updated over the phone and answered all questions. Admission and Anticipated Discharge Date Admission Date: June 02, 2021 Subjective No new issues. Still with some cough and expectoration. We were finally able to get an IS for him- he did okay though limited by intermittent bouts of cough when using it. Stated he did well with physical therapy today. Discussed plan of care in detail with him at bedside. Physical Exam Physical Exam: General: Elderly male, on NC, not in acute distress HEENT: EOMI, KATHY, MMM Chest: Diminished breath sounds bilaterally CVS: Regular rate and rhythm, normal heart sounds, no murmur Abdomen: Soft, non tender, not distended, normal bowel sounds Neuro: Awake, alert, oriented, conversing well, non focal Extremities: No cyanosis, clubbing or edema Results & Data Results & Data ([facility]) Vital Signs (Past 12 Hours) Vital Signs Temp Pulse Resp BP BP Pulse Ox Pulse Ox 06/05/21 11:48 36.7 C 63 18 170/72 H 98 06/05/21 07:32 36.4 C L 63 19 181/72 H 98 06/05/21 06:30 36.5 C 67 16 158/73 H 98 06/05/21 04:00 98 Laboratory Results Short CBC 06/05/21 Range/Units 06:54 WBC 9.28 (4.8-10.8) K/uL Hgb 13.6 L (14.0-18.0) g/dL Hct 39.7 L (42-52) % Plt Count 174 (130-400) K/uL BMP 06/05/21 06:54 Sodium 139 Potassium 4.1 Chloride 107 Carbon Dioxide 27 BUN 32 H Creatinine 0.85 Glucose 136 H Calcium 8.4 L Cardiac Enzymes 06/05/21 Range/Units 06:54 Total Creatine Kinase 813 H (30-223) U/L Liver Function 06/05/21 Range/Units 06:54 Total Bilirubin 0.5 (0.2-1.0) mg/dl AST 82 H (13-39) U/L ALT 54 H (7-52) U/L Alkaline Phosphatase 65 (34-104) U/L Albumin 3.0 L (3.4-5.0) gm/dl Medications Administered Current Inpatient Medications Acetaminophen (Acetaminophen 325 Mg Tab) 650 mg PO Q4H PRN PRN Reason: Pain or Fever Stop: 07/02/21 04:53 Ascorbic Acid (Ascorbic Acid 500 Mg Tab) [facility] [place]: 07/02/21 08:59 Last Admin: 06/05/21 08:08 Dose: 500 mg Documented by: Atenolol (Atenolol 50 Mg Tablet) 50 mg PO QAM [facility] Stop: 07/03/21 08:59 Last Admin: 06/05/21 08:07 Dose: 50 mg Documented by: Dipyridamole/Aspirin (Dipyridamole/Aspirin Cap) 1 cap PO BID [facility] Stop: 07/02/21 20:59 Last Admin: 06/05/21 08:08 Dose: 1 cap Documented by: Enoxaparin Sodium (Enoxaparin Inj 40 Mg/0.4 Ml Syr) 40 mg SQ QAM [facility] Stop: 07/02/21 09:29 Last Admin: 06/05/21 08:09 Dose: 40 mg Documented by: Guaifenesin (Guaifenesin 600 Mg Tabcr) 600 mg PO Q12 [facility] Stop: 07/04/21 20:59 Last Admin: 06/05/21 08:09 Dose: 600 mg Documented by: Promethazine HCl 6.25 mg/ (Sodium Chloride) 50.25 mls @ 201 mls/hr IV Q6H PRN PRN Reason: Nausea And Vomiting Stop: 07/02/21 04:53 Remdesivir 100 mg/ Sodium (Chloride) 250 mls @ 250 mls/hr IV Q24H [facility] Stop: 06/06/21 12:59 Last Infusion: 06/05/21 14:23 Dose: Infused Documented by: Dexamethasone 6 mg/ Syringe 1.5 mls @ 1 mls/min IV DAILY [facility] Stop: 07/03/21 08:59 Last Admin: 06/05/21 08:09 Dose: 1 mls/min Documented by: Ceftriaxone Sodium 1,000 mg/ (Dextrose) 60 mls @ 120 mls/hr IV Q24H [facility]; Protocol Stop: 06/12/21 05:59 Last Infusion: 06/05/21 06:43 Dose: Infused Documented by: Ipratropium [place] (Ipratropium [place] Neb Soln 0.02% 2.5 Ml Vial) 0.5 mg INH Q4H PRN PRN Reason: SOB/Wheezing Stop: 07/02/21 04:53 Levalbuterol HCl (Levalbuterol 1.25mg/0.5ml Neb) 1.25 mg INH Q4H PRN PRN Reason: SOB/Wheezing Stop: 07/02/21 04:53 Lisinopril (Lisinopril 40 Mg Tab) 40 mg PO HS [facility] Stop: 07/04/21 20:59 Last Admin: 06/04/21 20:53 Dose: 40 mg Documented by: Vitamin D (Cholecalciferol 5,000 Units 125 Mcg Tab) 5,000 units PO QAM [facility] Stop: 07/02/21 08:59 Last Admin: 06/05/21 08:09 Dose: 5,000 units Documented by: Zinc Sulfate (Zinc Sulfate 220 Mg Capsule) 220 mg PO QAM [facility] Stop: 07/02/21 08:59 Last Admin: 06/05/21 08:08 Dose: 220 mg Documented by:
[2021-06-05] MEDS: lisinopril 40 MG TAB PO SCH (20:30)
[2021-06-06] MEDS: cefTRIAXone SODIUM 1,000 MG in DEXTROSE 5% 50 ML IV SCH (05:53)
[2021-06-06] MEDS: hydrALAZINE HCL 20 MG/ML VIAL IV PRN (05:53)
[2021-06-06 08:04] LABS: Hematocrit (blood only) 42.2 % (42-52); Hemoglobin 13.9 g/dL (14.0-18.0); Mean Corpuscular Hemoglobin 33.1 pg (25-34); Mean Corpuscular Hgb Conc 32.9 g/dL (32-36); Mean Corpuscular Volume 100.5 fL (80-100); Mean Platelet Volume 12.3 fL (7.4-10.4); Platelet Count 201 K/uL (130-400); RDW Standard Deviation 47.6 fL (36.4-46.3); White Blood Count 8.64 K/uL (4.8-10.8)
[2021-06-06 08:16] LABS: Albumin Globulin Ratio 1.3 (0.9-2); BUN Creatinine Ratio 32.1 (10-20); Bilirubin,Total 0.5 mg/dl (0.2-1.0); C Reactive Protein 3.09 mg/dl (0-0.5); Calcium 8.3 mg/dl (8.5-10.1); Creatinine Clr Calc Pharmacy 63.3 ml/min; Est GFR (African American) 93.3 ml/min; Est GFR (Non-African American) 80.5 ml/min; Globulin 2.4 gm/dl (2.5-4.0); Potassium 3.5 mmol/L (3.5-5.1); Total Protein 5.4 gm/dl (6.0-8.3)
[2021-06-06] MEDS: ATENOLOL 50 MG TABLET PO SCH (08:55)
[2021-06-06] MEDS: ASCORBIC ACID 500 MG TAB PO SCH (08:55)
[2021-06-06] MEDS: dexAMETHasone 6 MG in SYRINGE 0 ML IV SCH (08:56)
[2021-06-06] MEDS: DIPYRIDAMOLE/ASPIRIN CAP PO SCH ×2 (08:56→20:43)
[2021-06-06] MEDS: ENOXAPARIN INJ 40 MG/0.4 ML SYR SQ SCH (08:56)
[2021-06-06] MEDS: guaiFENesin 600 MG TABCR PO SCH ×2 (08:56→20:43)
[2021-06-06] MEDS: CHOLECALCIFEROL 5,000 UNITS 125 MCG TAB PO SCH (08:56)
[2021-06-06] MEDS: ZINC SULFATE 220 MG CAPSULE PO SCH (08:56)
[2021-06-06] MEDS: REMDESIVIR 100 MG in SODIUM CHLORIDE 0.9% 230 ML IV SCH (11:56)
--- NOTE | 2021-06-06 15:01 | Hospitalist Progress Note ---
Date of Service June 06, 2021 Assessment & Plan (1) Acute hypoxemic respiratory failure: Plan: Acute hypoxic respiratory failure with Covid 19 infection (tested positive 06/01) -day 06/12 Remdesivir, day 05/18 Decadron. Will discontinue rocephin. Check for C diff if more diarrhea. - Inflammatory markers continue to improve - wean down supplemental oxygen as tolerated - continue IS, more OOB activities Elevated troponin- likely demand ischemia in setting of acute illness - seen by cardio- continue home meds -TTE no wall motional abnormality Rhabdomyolysis- improving; s/p IVF. HTN- On tenormin. Home lisinopril was resumed yesterday- BP still elevated- will have HLZ prn- If needs frequently, will add norvasc. 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 Admission and Anticipated Discharge Date Admission Date: June 02, 2021 Subjective Feels fine. He is feeling stronger. However he had bowel and bladder accident making a mess. Says loose bowel movement. Still with some cough, more when he starts to use incentive spirometer. Physical Exam Physical Exam: General: Elderly male, on NC, not in acute distress HEENT: EOMI, KATHY, MMM Chest: Diminished breath sounds bilaterally CVS: Regular rate and rhythm, normal heart sounds, no murmur Abdomen: Soft, non tender, not distended, normal bowel sounds Neuro: Awake, alert, oriented, conversing well, non focal Extremities: No cyanosis, clubbing or edema Results & Data Results & Data ([facility]) Vital Signs (Past 12 Hours) Vital Signs Temp Pulse Pulse Resp BP Pulse Ox Pulse Ox 06/06/21 12:16 36.3 C L 65 16 115/70 96 06/06/21 07:36 36.7 C 80 14 122/69 94 06/06/21 06:45 60 06/06/21 05:14 36.8 C 55 L 16 189/71 H 100 06/06/21 04:00 96 Laboratory Results Short CBC 06/06/21 Range/Units 07:26 WBC 8.64 (4.8-10.8) K/uL Hgb 13.9 L (14.0-18.0) g/dL Hct 42.2 (42-52) % Plt Count 201 (130-400) K/uL BMP 06/06/21 07:26 Sodium 139 Potassium 3.5 Chloride 107 Carbon Dioxide 27 BUN 26 H Creatinine 0.81 Glucose 96 Calcium 8.3 L Cardiac Enzymes 06/06/21 Range/Units 07:26 Total Creatine Kinase 478 H (30-223) U/L Liver Function 06/06/21 Range/Units 07:26 Total Bilirubin 0.5 (0.2-1.0) mg/dl AST 66 H (13-39) U/L ALT 53 H (7-52) U/L Alkaline Phosphatase 62 (34-104) U/L Albumin 3.0 L (3.4-5.0) gm/dl Medications Administered Current Inpatient Medications Acetaminophen (Acetaminophen 325 Mg Tab) 650 mg PO Q4H PRN PRN Reason: Pain or Fever Stop: 07/02/21 04:53 Ascorbic Acid (Ascorbic Acid 500 Mg Tab) 500 mg PO QAM [facility] Stop: 07/02/21 08:59 Last Admin: 06/06/21 08:55 Dose: 500 mg Documented by: Atenolol (Atenolol 50 Mg Tablet) 50 mg PO QAM [facility] Stop: 07/03/21 08:59 Last Admin: 06/06/21 08:55 Dose: 50 mg Documented by: Dipyridamole/Aspirin (Dipyridamole/Aspirin Cap) 1 cap PO BID [facility] Stop: 07/02/21 20:59 Last Admin: 06/06/21 08:56 Dose: 1 cap Documented by: Enoxaparin Sodium (Enoxaparin Inj 40 Mg/0.4 Ml Syr) 40 mg SQ QAM [facility] Stop: 07/02/21 09:29 Last Admin: 06/06/21 08:56 Dose: 40 mg Documented by: Guaifenesin (Guaifenesin 600 Mg Tabcr) 600 mg PO Q12 [facility] Stop: 07/04/21 20:59 Last Admin: 06/06/21 08:56 Dose: 600 mg Documented by: Hydralazine HCl (Hydralazine Hcl 20 Mg/Ml Vial) 10 mg IV Q4 PRN PRN Reason: HTN Stop: 07/05/21 15:40 Last Admin: 06/06/21 05:53 Dose: 10 mg Documented by: Promethazine HCl 6.25 mg/ (Sodium Chloride) 50.25 mls @ 201 mls/hr IV Q6H PRN PRN Reason: Nausea And Vomiting Stop: 07/02/21 04:53 Dexamethasone 6 mg/ Syringe 1.5 mls @ 1 mls/min IV DAILY [facility] Stop: 07/03/21 08:59 Last Admin: 06/06/21 08:56 Dose: 1 mls/min Documented by: Ceftriaxone Sodium 1,000 mg/ (Dextrose) 60 mls @ 120 mls/hr IV Q24H [facility]; Protocol Stop: 06/12/21 05:59 Last Infusion: 06/06/21 06:23 Dose: Infused Documented by: Ipratropium [place] (Ipratropium [place] Neb Soln 0.02% 2.5 Ml Vial) 0.5 mg INH Q4H PRN PRN Reason: SOB/Wheezing Stop: 07/02/21 04:53 Levalbuterol HCl (Levalbuterol 1.25mg/0.5ml Neb) 1.25 mg INH Q4H PRN PRN Reason: SOB/Wheezing Stop: 07/02/21 04:53 Lisinopril (Lisinopril 40 Mg Tab) 40 mg PO HS [facility] Stop: 07/04/21 20:59 Last Admin: 06/05/21 20:30 Dose: 40 mg Documented by: Vitamin D (Cholecalciferol 5,000 Units 125 Mcg Tab) [facility] [place] Stop: 07/02/21 08:59 Last Admin: 06/06/21 08:56 Dose: 5,000 units Documented by: Zinc Sulfate (Zinc Sulfate 220 Mg Capsule) 220 mg PO QAM [facility] Stop: 07/02/21 08:59 Last Admin: 06/06/21 08:56 Dose: 220 mg Documented by:
[2021-06-06] MEDS: lisinopril 40 MG TAB PO SCH (20:43)
[2021-06-07 07:05] LABS: Hematocrit (blood only) 39.3 % (42-52); Hemoglobin 13.5 g/dL (14.0-18.0); Mean Corpuscular Hemoglobin 33.4 pg (25-34); Mean Corpuscular Hgb Conc 34.4 g/dL (32-36); Mean Corpuscular Volume 97.3 fL (80-100); Mean Platelet Volume 12.1 fL (7.4-10.4); Platelet Count 212 K/uL (130-400); RDW Standard Deviation 46.5 fL (36.4-46.3); Red Blood Count 4.04 M/uL (4.7-6.1); White Blood Count 8.72 K/uL (4.8-10.8)
[2021-06-07 08:00] LABS: Albumin Globulin Ratio 1.2 (0.9-2); Albumin Level 2.7 gm/dl (3.4-5.0); BUN Creatinine Ratio 32.1 (10-20); Bilirubin,Total 0.5 mg/dl (0.2-1.0); C Reactive Protein 2.1 mg/dl (0-0.5); Calcium 8.1 mg/dl (8.5-10.1); Creatinine Clr Calc Pharmacy 63.3 ml/min; Est GFR (African American) 93.3 ml/min; Est GFR (Non-African American) 80.5 ml/min; Globulin 2.2 gm/dl (2.5-4.0); Potassium 3.6 mmol/L (3.5-5.1); Total Protein 4.9 gm/dl (6.0-8.3)
[2021-06-07] MEDS: ZINC SULFATE 220 MG CAPSULE PO SCH (08:23)
[2021-06-07] MEDS: ATENOLOL 50 MG TABLET PO SCH (08:23)
[2021-06-07] MEDS: guaiFENesin 600 MG TABCR PO SCH ×2 (08:23→20:49)
[2021-06-07] MEDS: DIPYRIDAMOLE/ASPIRIN CAP PO SCH ×2 (08:23→20:49)
[2021-06-07] MEDS: CHOLECALCIFEROL 5,000 UNITS 125 MCG TAB PO SCH (08:24)
[2021-06-07] MEDS: ENOXAPARIN INJ 40 MG/0.4 ML SYR SQ SCH (08:24)
[2021-06-07] MEDS: ASCORBIC ACID 500 MG TAB PO SCH (08:24)
[2021-06-07] MEDS: dexAMETHasone 6 MG in SYRINGE 0 ML IV SCH (08:39)
--- NOTE | 2021-06-07 13:37 | Hospitalist Progress Note ---
Date of Service June 07, 2021 Assessment & Plan (1) Acute hypoxemic respiratory failure: Plan: Acute hypoxic respiratory failure with Covid 19 infection (tested positive 06/01) - s/p 5 day course of Remdesivir, day 06/17 Decadron. Rocephin has been discontinued. - Inflammatory markers improving - off of oxygen now; doing better with IS; more OOB activities Elevated troponin- likely demand ischemia in setting of acute illness - seen by cardio- continue home meds -TTE no wall motional abnormality Rhabdomyolysis- improving; s/p IVF. HTN- BP improved, on tenormin, lisinopril. HLZ prn- If needs frequently, will add norvasc. 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 Admission and Anticipated Discharge Date Admission Date: June 02, 2021 Subjective States he had a rough night. He wanted more physical activities but was restricted to bed. Otherwise no new issues. He got his glasses. He has been off of oxygen. He has been using IS. His cough is slightly improved. Physical Exam Physical Exam: General: Elderly male, sitting in bed, on room air, not in acute distress HEENT: EOMI, KATHY, MMM Chest: Diminished breath sounds bilaterally CVS: Regular rate and rhythm, normal heart sounds, no murmur Abdomen: Soft, non tender, not distended, normal bowel sounds Neuro: Awake, alert, oriented, conversing well, non focal Extremities: No cyanosis, clubbing or edema Results & Data Results & Data ([facility]) Vital Signs (Past 12 Hours) Vital Signs Temp Pulse Pulse Pulse Resp BP BP 06/07/21 11:55 36.5 C 66 18 114/65 06/07/21 09:52 53 L 06/07/21 07:36 36.8 C 62 18 176/72 H 06/07/21 04:02 36.3 C L 72 18 152/90 H Pulse Ox 06/07/21 11:55 93 06/07/21 09:52 06/07/21 07:36 94 06/07/21 04:02 95 Laboratory Results Short CBC 06/07/21 Range/Units 06:39 WBC 8.72 (4.8-10.8) K/uL Hgb 13.5 L (14.0-18.0) g/dL Hct 39.3 L (42-52) % Plt Count 212 (130-400) K/uL BMP 06/07/21 06:39 Sodium 139 Potassium 3.6 Chloride 108 H Carbon Dioxide 26 BUN 26 H Creatinine 0.81 Glucose 104 H Calcium 8.1 L Liver Function 06/07/21 Range/Units 06:39 Total Bilirubin 0.5 (0.2-1.0) mg/dl AST 44 H (13-39) U/L ALT 44 (7-52) U/L Alkaline Phosphatase 56 (34-104) U/L Albumin 2.7 L (3.4-5.0) gm/dl
[2021-06-07] MEDS: lisinopril 40 MG TAB PO SCH (20:50)
[2021-06-08] MEDS: ZINC SULFATE 220 MG CAPSULE PO SCH (08:27)
[2021-06-08] MEDS: dexAMETHasone 4 MG TAB PO SCH (08:27)
[2021-06-08] MEDS: ASCORBIC ACID 500 MG TAB PO SCH (08:27)
[2021-06-08] MEDS: ATENOLOL 50 MG TABLET PO SCH (08:27)
[2021-06-08] MEDS: CHOLECALCIFEROL 5,000 UNITS 125 MCG TAB PO SCH (08:27)
[2021-06-08] MEDS: DIPYRIDAMOLE/ASPIRIN CAP PO SCH ×2 (08:28→20:23)
[2021-06-08] MEDS: guaiFENesin 600 MG TABCR PO SCH ×2 (08:28→20:25)
[2021-06-08] MEDS: ENOXAPARIN INJ 40 MG/0.4 ML SYR SQ SCH (08:29)
--- NOTE | 2021-06-08 11:13 | Hospitalist Progress Note ---
Date of Service June 08, 2021 Assessment & Plan (1) Acute hypoxemic respiratory failure: Plan: Acute hypoxic respiratory failure with Covid 19 infection (tested positive 06/01) - s/p 5 day course of Remdesivir, day 07/18 Decadron. Rocephin has been discontinued. - Inflammatory markers improving - off of oxygen now; doing better with IS; more OOB activities Elevated troponin- likely demand ischemia in setting of acute illness - seen by cardio- continue home meds -TTE no wall motional abnormality Rhabdomyolysis- likely resolved. HTN- BP improved, on tenormin, lisinopril. HLZ prn- If needs frequently, will add norvasc. 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 Admission and Anticipated Discharge Date Admission Date: June 02, 2021 Subjective He was shifted to a new room and states he is having issues with logistics. He was demanding a cup of hot coffee without sugar but more creamer today. He was eager to watch Wednesday morning news on [employer] and was asking for help to put on the channel. Otherwise no other issues. No more diarrhea. No more supplemental oxygen requirement. Using NC. He was able to secure a bedside urinal. Physical Exam Physical Exam: General: Elderly male, sitting in bed, on room air, not in acute distress HEENT: EOMI, KATHY, MMM Chest: Diminished breath sounds bilaterally CVS: Regular rate and rhythm, normal heart sounds, no murmur Abdomen: Soft, non tender, not distended, normal bowel sounds Neuro: Awake, alert, oriented, conversing well, non focal Extremities: No cyanosis, clubbing or edema Results & Data Results & Data ([facility]) Vital Signs (Past 12 Hours) Vital Signs Temp Pulse Pulse Resp BP BP Pulse Ox 06/08/21 07:49 55 L 06/08/21 07:38 36.6 C 72 18 150/78 H 96 06/08/21 05:25 36.4 C L 62 20 183/82 H 198/97 H 95 06/08/21 05:14 60 06/08/21 04:00 06/08/21 02:38 36.8 C 60 16 178/89 H 97 06/08/21 00:35 61 Pulse Ox 06/08/21 07:49 06/08/21 07:38 06/08/21 05:25 06/08/21 05:14 06/08/21 04:00 94 06/08/21 02:38 06/08/21 00:35 Medications Administered Current Inpatient Medications Acetaminophen (Acetaminophen 325 Mg Tab) 650 mg PO Q4H PRN PRN Reason: Pain or Fever Stop: 07/02/21 04:53 Ascorbic Acid (Ascorbic Acid 500 Mg Tab) [facility] [place] Stop: 07/02/21 08:59 Last Admin: 06/08/21 08:27 Dose: 500 mg Documented by: Atenolol (Atenolol 50 Mg Tablet) 50 mg PO QAM [facility] Stop: 07/03/21 08:59 Last Admin: 06/08/21 08:27 Dose: 50 mg Documented by: Dexamethasone (Dexamethasone 4 Mg Tab) 6 mg PO DAILY [facility] Stop: 07/08/21 08:59 Last Admin: 06/08/21 08:27 Dose: 6 mg Documented by: Dipyridamole/Aspirin (Dipyridamole/Aspirin Cap) 1 cap PO BID [facility] Stop: 07/02/21 20:59 Last Admin: 06/08/21 08:28 Dose: 1 cap Documented by: Enoxaparin Sodium (Enoxaparin Inj 40 Mg/0.4 Ml Syr) 40 mg SQ QAM [facility] Stop: 07/02/21 09:29 Last Admin: 06/08/21 08:29 Dose: 40 mg Documented by: Guaifenesin (Guaifenesin 600 Mg Tabcr) 600 mg PO Q12 [facility] Stop: 07/04/21 20:59 Last Admin: 06/08/21 08:28 Dose: 600 mg Documented by: Hydralazine HCl (Hydralazine Hcl 20 Mg/Ml Vial) 10 mg IV Q4 PRN PRN Reason: HTN Stop: 07/05/21 15:40 Last Admin: 06/06/21 05:53 Dose: 10 mg Documented by: Promethazine HCl 6.25 mg/ (Sodium Chloride) 50.25 mls @ 201 mls/hr IV Q6H PRN PRN Reason: Nausea And Vomiting Stop: 07/02/21 04:53 Ipratropium [place] (Ipratropium [place] Neb Soln 0.02% 2.5 Ml Vial) 0.5 mg INH Q4H PRN PRN Reason: SOB/Wheezing Stop: 07/02/21 04:53 Levalbuterol HCl (Levalbuterol 1.25mg/0.5ml Neb) 1.25 mg INH Q4H PRN PRN Reason: SOB/Wheezing Stop: 07/02/21 04:53 Lisinopril (Lisinopril 40 Mg Tab) 40 mg PO [facility] Stop: 07/04/21 20:59 Last Admin: 06/07/21 20:50 Dose: 40 mg Documented by: Vitamin D (Cholecalciferol 5,000 Units 125 Mcg Tab) 5,000 [facility] [place] Stop: 07/02/21 08:59 Last Admin: 06/08/21 08:27 Dose: 5,000 units Documented by: Zinc Sulfate (Zinc Sulfate 220 Mg Capsule) 220 [facility] Stop: 07/02/21 08:59 Last Admin: 06/08/21 08:27 Dose: 220 mg Documented by:
[2021-06-08] MEDS: lisinopril 40 MG TAB PO SCH (20:23)
[2021-06-09] MEDS: hydrALAZINE HCL 20 MG/ML VIAL IV PRN (04:18)
[2021-06-09] MEDS: guaiFENesin 600 MG TABCR PO SCH ×2 (08:07→21:14)
[2021-06-09] MEDS: ASCORBIC ACID 500 MG TAB PO SCH (08:07)
[2021-06-09] MEDS: ATENOLOL 50 MG TABLET PO SCH (08:08)
[2021-06-09] MEDS: DIPYRIDAMOLE/ASPIRIN CAP PO SCH ×2 (08:08→21:13)
[2021-06-09] MEDS: dexAMETHasone 4 MG TAB PO SCH (08:09)
[2021-06-09] MEDS: ZINC SULFATE 220 MG CAPSULE PO SCH (08:09)
[2021-06-09] MEDS: CHOLECALCIFEROL 5,000 UNITS 125 MCG TAB PO SCH (08:09)
[2021-06-09] MEDS: ENOXAPARIN INJ 40 MG/0.4 ML SYR SQ SCH (08:10)
--- NOTE | 2021-06-09 12:14 | Hospitalist Progress Note ---
Date of Service June 09, 2021 Assessment & Plan (1) Acute hypoxemic respiratory failure: Plan: Acute hypoxic respiratory failure with Covid 19 infection (tested positive 06/01) - s/p 5 day course of Remdesivir, day 08/17 Decadron. Rocephin has been discontinued. - Inflammatory markers improving - off of oxygen now; doing better with IS; more OOB activities Elevated troponin- likely demand ischemia in setting of acute illness - seen by cardio- continue home meds -TTE no wall motional abnormality Rhabdomyolysis- likely resolved. HTN- BP improved, on tenormin, lisinopril. HLZ prn- If needs frequently, will add norvasc. 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 Admission and Anticipated Discharge Date Admission Date: June 02, 2021 Subjective No new issues. He feels fine. States he wants to watch channel 10 on TV. Has some cough. Using IS. Denies any chest pain, shortness of breath. Physical Exam Physical Exam: General: Elderly male, sitting in bed, on room air, not in acute distress HEENT: EOMI, KATHY, MMM Chest: Diminished breath sounds bilaterally CVS: Regular rate and rhythm, normal heart sounds, no murmur Abdomen: Soft, non tender, not distended, normal bowel sounds Neuro: Awake, alert, oriented, conversing well, non focal Extremities: No cyanosis, clubbing or edema Results & Data Results & Data ([facility]) Vital Signs (Past 12 Hours) Vital Signs Temp Pulse Pulse Resp BP BP Pulse Ox 06/09/21 11:10 36.6 C 67 20 96/60 L 94 06/09/21 07:28 36.7 C 69 18 147/73 H 96 06/09/21 06:13 66 06/09/21 05:53 115/54 L 06/09/21 04:12 36.6 C 66 20 181/84 H 94 06/09/21 00:17 62
[2021-06-09] MEDS: lisinopril 40 MG TAB PO SCH (21:13)
[2021-06-10] MEDS: DIPYRIDAMOLE/ASPIRIN CAP PO SCH ×2 (08:21→22:17)
[2021-06-10] MEDS: CHOLECALCIFEROL 5,000 UNITS 125 MCG TAB PO SCH (08:21)
[2021-06-10] MEDS: ATENOLOL 50 MG TABLET PO SCH (08:21)
[2021-06-10] MEDS: dexAMETHasone 4 MG TAB PO SCH (08:21)
[2021-06-10] MEDS: ENOXAPARIN INJ 40 MG/0.4 ML SYR SQ SCH (08:22)
[2021-06-10] MEDS: ZINC SULFATE 220 MG CAPSULE PO SCH (08:22)
[2021-06-10] MEDS: ASCORBIC ACID 500 MG TAB PO SCH (08:22)
[2021-06-10] MEDS: guaiFENesin 600 MG TABCR PO SCH ×2 (09:43→22:18)
--- NOTE | 2021-06-10 10:55 | Hospitalist Progress Note ---
Date of Service June 10, 2021 Assessment & Plan (1) Acute hypoxemic respiratory failure: Plan: Acute hypoxic respiratory failure with Covid 19 infection (tested positive 06/01) - s/p 5 day course of Remdesivir, day 09/17 Decadron. Rocephin has been discontinued. - Inflammatory markers improving - off of oxygen now; doing better with IS; more OOB activities Elevated troponin- likely demand ischemia in setting of acute illness - seen by cardio- continue home meds -TTE no wall motional abnormality Rhabdomyolysis- likely resolved. HTN- BP improved, on tenormin, lisinopril. HLZ prn- If needs frequently, will add norvasc. Facial asymmetry -CT head negative, MRI brain moderate brain loss, MRA with chronic vascular disease - MRI brain with 6mm mass in right auditory canal consistent with vestibular schwannoma. F/u with ENT as OP DVT ppx- SQ lovenox Disposition- Needs rehab per PT however will need to be 10 days post covid diagnosis for him to go to rehab, which will be on 06/11. Admission and Anticipated Discharge Date Admission Date: June 02, 2021 Subjective Feels fine. No new issues- trying to watch channel 10. Discussed that he is going to rehab tomorrow. Breathing is fine, on room air. Cough is improved. Using IS intermittently. Physical Exam Physical Exam: General: Elderly male, sitting in bed, on room air, not in acute distress HEENT: EOMI, KATHY, MMM Chest: Diminished breath sounds bilaterally CVS: Regular rate and rhythm, normal heart sounds, no murmur Abdomen: Soft, non tender, not distended, normal bowel sounds Neuro: Awake, alert, oriented, conversing well, non focal Extremities: No cyanosis, clubbing or edema Results & Data Results & Data ([facility]) Vital Signs (Past 12 Hours) Vital Signs Temp Pulse Pulse Resp BP BP Pulse Ox 06/10/21 08:17 36.4 C L 76 17 132/75 95 06/10/21 06:37 62 06/10/21 03:14 36.6 C 76 20 162/66 H 96 06/09/21 23:46 36.8 C 76 20 135/73 94 06/09/21 23:00 63
[2021-06-10] MEDS: lisinopril 40 MG TAB PO SCH (22:17)
[2021-06-11] MEDS: ATENOLOL 50 MG TABLET PO SCH (08:14)
[2021-06-11] MEDS: dexAMETHasone 4 MG TAB PO SCH (08:14)
[2021-06-11] MEDS: guaiFENesin 600 MG TABCR PO SCH (08:15)
[2021-06-11] MEDS: DIPYRIDAMOLE/ASPIRIN CAP PO SCH (08:15)
[2021-06-11] MEDS: ASCORBIC ACID 500 MG TAB PO SCH (08:15)
[2021-06-11] MEDS: ENOXAPARIN INJ 40 MG/0.4 ML SYR SQ SCH (08:16)
[2021-06-11] MEDS: CHOLECALCIFEROL 5,000 UNITS 125 MCG TAB PO SCH (08:16)
[2021-06-11] MEDS: ZINC SULFATE 220 MG CAPSULE PO SCH (08:16)
[2021-06-11 08:45] LABS: Calcium 8.4 mg/dl (8.5-10.1); Creatinine Clr Calc Pharmacy 63.1 ml/min; Est GFR (African American) 93.3 ml/min; Est GFR (Non-African American) 80.5 ml/min; Magnesium 2.1 mg/dl (1.7-2.4); Phosphorus 3.1 mg/dl (2.5-4.9); Potassium 3.7 mmol/L (3.5-5.1)
--- NOTE | 2021-06-11 14:16 | Hospitalist Progress Note ---
Date of Service June 11, 2021 Assessment & Plan (1) Acute hypoxemic respiratory failure: (2) COVID: (3) Weakness: (4) Elevated troponin: Plan: Acute hypoxic respiratory failure with Covid 19 infection (tested positive 06/01) s/p 5 day course of Remdesivir, day 9/10 Decadron. Rocephin has been discontinued. Inflammatory markers improving off of oxygen now; says today ambulated without walker Elevated troponin- likely demand ischemia in setting of acute illness Evaluated by cardio- to continue home meds TTE no wall motional abnormality Rhabdomyolysis- likely resolved. HTN- BP improved, on tenormin, lisinopril.To continue home meds Facial asymmetry CT head negative, MRI brain moderate brain loss, MRA with chronic vascular disease MRI brain with 6mm mass in right auditory canal consistent with vestibular schwannoma. F/u with ENT as OP Plan to discharge care center SNF today. Followup with PCP and ENT. Admission and Anticipated Discharge Date Admission Date: June 02, 2021 Subjective Resting comfortably denies sob no chest pain eating ok says today he ambulated without walker No nausea Wants to go to [facility] Review of Systems Review of Systems: All systems reviewed & are unremarkable except as noted in Subjective Physical Exam Constitutional: WD/WN, vitals as above ENMT: external ear and nose normal, oropharynx normal Neck: trachea midline, no thyromegaly Respiratory: normal respiratory effort, lungs clear to auscultation Cardiovascular: RRR, no murmur, no edema Gastrointestinal (Abdomen): normal bowel sounds, soft, nontender, no hepatosplenomegaly Neurologic: PERRL, EOMI, accommodation nl, no face palsy, no dysarthria Psychiatric: A+Ox3, euthymic affect Results & Data Results & Data ([facility]) Vital Signs (Past 12 Hours) Vital Signs Temp Pulse Pulse Resp BP BP Pulse Ox 06/11/21 11:23 36.8 C 67 18 108/65 96 06/11/21 08:00 36.4 C L 67 16 148/77 H 98 06/11/21 06:28 63
--- NOTE | 2021-06-11 14:23 | Discharge Summary ---
Date of Service June 11, 2021 Admission HPI Per Admitting Provider History obtained from patient, family, and records. Patient is a fair historian. 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 Patient with junky cough symptoms productive of yellow sputum the last few days. Appetite not too good as per . Patient denies chest pain, SOB. No known sick COVID-19 contacts as per . Patient completed COVID-19 vaccination along with a booster shot. Home testing for COVID-19 yesterday was positive. Patient intended to call PCPs office to inquire about antiviral medication during office hours today. Patient was found on the ground face down just outside her front door by hours ago. Patient claims he lost his balance while picking up sticks. Patient cannot recall how long he was on the ground. Patient denies chest pain, SOB, headache, syncope symptoms. Patient noted to be very weak by . felt she was dragging weight back into the house. Epistaxis subsequently noted when patient blew his nose as per . EMS called by . Patient noted to be hypoxemic upon arrival of EMS. Patient given Decadron upon arrival at the ER. Medical History as above Surgical History : gamma knife surgery for acoustic neuroma, cataract surgery Family History : Lung cancer, DM, heart disease Personal/Social history : Non-smoker, occasional EtOH intake, retired [employer] Admission Exam Per Admitting Provider GENERAL: Comfortable, pleasant, episodic disorientation, obese, no respiratory distress SKIN: Normal color, warm HEENT: Multiple facial abrasions, pink palpebral conjunctivae, no ptosis, dry buccal mucosa, nasal cannula in place NECK : Supple, short neck, no tenderness CHEST : Decreased breath sounds, no tenderness HEART : RRR, no obvious murmurs ABDOMEN: Some distention, nontender EXTREMITIES : No LE swelling, no LE tenderness, no other conspicuous deformities noted NEUROLOGIC : Coherent, episodic disorientation, left facial weakness (unknown duration as per ), gait and stance not assessed Principal Diagnosis Covid pneumonia Discharge Data Allergies Allergy/AdvReac Type Severity Reaction Status Date / Time No Known Allergies Allergy Unknown Verified 06/01/21 22:49 Consultations 06/02/21 09:14 Consult Cardiology Routine Ordered Studies 06/01/21 23:00 CT angio chest PE protocol Urgent CT cervical spine wo con Urgent CT head/brain wo con Urgent 06/02/21 00:24 CT abd pelvis IV con only Urgent 06/03/21 00:13 MR angio head wo con Routine 06/03/21 00:14 MR brain wo con Routine Hospital Course (1) Acute hypoxemic respiratory failure: (2) COVID: (3) Weakness: (4) Elevated troponin: Acute hypoxic respiratory failure with Covid 19 infection (tested positive 06/01) s/p 5 day course of Remdesivir, day 9/10 Decadron. Rocephin has been discontinued. Inflammatory markers improving off of oxygen now; says today ambulated without walker Elevated troponin- likely demand ischemia in setting of acute illness Evaluated by cardio- to continue home meds TTE no wall motional abnormality Rhabdomyolysis- likely resolved. HTN- BP improved, on tenormin, lisinopril.To continue home meds Facial asymmetry CT head negative, MRI brain moderate brain loss, MRA with chronic vascular disease MRI brain with 6mm mass in right auditory canal consistent with vestibular schwannoma. F/u with ENT as OP Plan to discharge care center SNF today. Followup with PCP and ENT. Total Time Total Time Spent Total Time Spent (In Minutes): 40 minutes Discharge Plan Discharge Items Patient Disposition: Transfer [facility] Reason For Visit: RESP FAILURE, COVID, L FACIAL WEAKNESS Discharge Diagnosis: Resp failure covid pneumonia Activity: As commented below Activity Comment: As tolerated Non-emergency contact: Primary Care Provider Call non-emergency contact if: you have any medication questions, your symptoms worsen and you have a fever Follow-up/Referrals: Roni Johnson MD [Primary Care Provider] - Diet: Regular Addtl Attending Provider Instructions: Followup with PCP Within one week of discharge from [facility]. Followup With ENT for MRI: 6 mm mass within the right internal auditory canal consistent with a vestibular schwannoma. Pending Studies at Discharge: No Stand-Alone Forms: My [facility] Healthy Labs Skilled Items Patient informed of condition?: Yes DNR: No Discharge Level of Care: Skilled Communicable Disease: No Discharge Prognosis: Stable Lines: None Urinary Catheter: No Medications and DC Order Prescriptions: New guaifenesin [Mucinex] 600 mg Tablet Extended Release 12hr 600 mg PO Q12 Qty: 14 RF: 0 ascorbic acid (vitamin C) [Vitamin C] 500 mg Tablet 500 mg PO QAM Qty: 14 RF: 0 cholecalciferol (vitamin D3) 125 mcg (5,000 unit) Tablet 5,000 unit PO QAM Qty: 30 RF: 0 zinc sulfate [Orazinc] 50 mg zinc (220 mg) Capsule 220 mg PO QAM Qty: 14 RF: 0 levalbuterol tartrate [Xopenex HFA] 45 mcg/actuation HFA aerosol inhaler 2 inh inhalation Q4H PRN (Reason: shortness of breath) Qty: 15 RF: 2 Continued aspirin-dipyridamole 25-200 mg capsule, ER multiphase 12 hr 1 cap PO BID RF: 0 cyanocobalamin (vitamin B-12) [Vitamin B-12] 1,000 mcg Tablet 1,000 mcg PO DAILY RF: 0 aspirin 81 mg Tablet,Delayed Release (Dr/Ec) 81 mg PO DAILY RF: 0 simvastatin 20 mg tablet 20 mg PO HS RF: 0 nitroglycerin [Nitrostat] 0.4 mg Tablet, Sublingual 0.4 mg sublingual DIRECTED PRN (Reason: Chest Pain) RF: 0 lisinopril 40 mg tablet 40 mg PO HS RF: 0 atenolol 50 mg tablet 50 mg PO DAILY RF: 0 lutein 20 mg Tablet 0 mg PO DAILY RF: 0 Discharge Orders: Discharge Order (Routine); Ordered 06/11/21 Ordered By: Fabio Fox/Other Patient Handouts: Prediabetes, 5 Steps for Eating Healthier Admission Data Admit Date/Time: 06/02/21 03:00 Attending Provider: Fabio Rick Admit Provider: Carmine Lawrence Primary Care Provider: Roni Johnson Other Providers: Rodney Goldsmith ; [place] ; Flaco Uribe [facility]
== END 2021-06-11 16:40 | DRG 177 ==
LOC: ED 21:57 → SUATTDRO 06-02 03:00 → 2S 06-02 03:00 → 2N 06-08 04:52